=== PATIENT | male | born 1950 | race Caucasian/White ===

== ENCOUNTER → 2019-04-20 13:45 | Outpatient (CLI) | payer OTHER, SELFPAY ==
--- NOTE | 2019-04-20 | DI.US.S_ITS ---
PROCEDURE: US SOFT TISSUE HEAD AND NECK INDICATIONS: LOCALIZED SWELLING, MASS AND LUMP, LT NECK TECHNIQUE: Real-time scanning was performed of the neck region of interest, with image documentation. COMPARISON: [facility], CT, C-SPINE WITHOUT CONTRAST, 05/24/2015, 13:42. FINDINGS: Palpable left neck mass corresponds to a calcified mass measuring roughly 0.9 x 1.0 cm. Doppler assessment demonstrates no internal flow; however assessment is severely limited secondary to the acoustic attenuation. IMPRESSION: Calcified mass or spine to the palpable abnormality measuring up to 1.0 cm. If indicated, contrast-enhanced soft tissue neck CT could be performed with marker over the palpable abnormality for further assessment. Dictated by: Luis HAWK Interpreted: Darvin Jacobs MD on 04/20/2019 at 15:53 Approved by: Darvin Jacobs M.D. on 04/20/2019 at 18:34
== END ==
PROVIDERS: PCP Physician Assistant Medical; Visit Provider Physician Assistant
DX: R22.1 Localized swelling, mass and lump, neck (principal)
CPT/HCPCS: 76536

== ENCOUNTER → 2020-11-21 13:05 | Outpatient (CLI) | payer OTHER, SELFPAY ==
--- NOTE | 2020-11-21 | DI.US.S_ITS ---
PROCEDURE: US ABDOMEN LIMITED INDICATIONS: RIGHT LOWER QUADRANT PAIN TECHNIQUE: Real-time focused scanning was performed of the abdomen, with image documentation. COMPARISON: None. FINDINGS: Within the right groin, there is an apparent direct inguinal hernia which contains fat. This is partially compressible. The neck size measures 1.2 x 1.2 cm. On the left, there is also a fat containing hernia which is believed to be a direct inguinal hernia with the hernia neck measuring 1.4 x 0.9 cm. IMPRESSION: Bilateral fat containing groin hernias. Dictated by: Cesar Oliver M.D. on 11/21/2020 at 14:08 Approved by: Cesar Oliver M.D. on 11/21/2020 at 14:09
== END ==
PROVIDERS: PCP Physician Assistant Medical; Referring Provider Physician Assistant Medical; Visit Provider Physician Assistant Medical
DX: R19.03 Right lower quadrant abdominal swelling, mass and lump (principal); R10.31 Right lower quadrant pain; K40.20 Bilateral inguinal hernia, without obstruction or gangrene, not specified as recurrent
CPT/HCPCS: 76705

== ENCOUNTER 2021-12-11 14:21 | Observation (INO) | payer OTHER, SELFPAY ==
[2021-12-11] VITALS (19 sets, daily range): BP systolic 106–174; BP diastolic 60–90; PULSE 72–145; RESP 18–34; TEMP 36.9–37; O2SAT 87–100; BMI 22.4
--- NOTE | 2021-12-11 14:33 | DI.RAD.S_ITS ---
PROCEDURE: XR CHEST 1V INDICATIONS: chest pain TECHNIQUE: One view of the chest was acquired. COMPARISON: None. FINDINGS: Surgical changes and devices: None. Lungs and pleura: There is hyperinflation and chronic interstitial changes without focal infiltrate, pleural effusion or pneumothorax. Mediastinum: Mediastinal contours appear normal. Heart size is normal. Bones and chest wall: No suspicious bony lesions. Overlying soft tissues appear unremarkable. Generalized decrease in osseous mineralization noted. IMPRESSION: Hyperinflation and chronic interstitial changes Approved by: Rodrigue Wong M.D. on 12/11/2021 at 15:19
--- NOTE | 2021-12-11 14:49 | ED_ITS ---
HPI - Arrhythmia/Palpitations General Chief Complaint: Arrhythmia/Palpitations Stated Complaint: sob/tachycardia Time Seen by Provider: 12/11/21 14:44 Source: patient Mode of arrival: Ambulatory History of Present Illness HPI narrative: Patient is a 70-year-old male who presents from the walk-in clinic with atrial flutter. Patient overall very poor historian. He thinks that it has been going on for least 1 year. He had an urgent/emergent hernia surgery in December of 2020 he was monitoring his heart rate at that time he said it sometimes it was up to 150. He sometimes has shortness of breath he always feels like he has fluttering in his chest. No actual pain no significant shortness of breath. No fevers or chills. He said last night he was lying in bed and felt like he was hyperventilating. Which prompted his visit to the walk-in clinic. Related Data Allergies Allergy/AdvReac Type Severity Reaction Status Date / Time Sulfa (Sulfonamide Allergy Verified 12/11/21 14:30 Antibiotics) Review of Systems Review of Systems Narrative: GENERAL: Denies chills, fatigue, malaise, fever, sweats, travel HEENT: Denies sinus pain, ear pain, sore throat, difficulty swallowing, neck pain RESPIRATORY: Denies dyspnea, cough, wheezing, hemoptysis, sputum. CARDIOVASCULAR: See HPI GASTROINTESTINAL: Denies nausea, vomiting, abdominal pain, diarrhea, constipation, melena. : Denies dysuria, frequency, incontinence, hematuria, urinary retention, flank pain. MUSCULOSKELETAL: Denies weakness, joint pain, or bony pain SKIN: No rash, no erythema, no pruritus NEUROLOGIC: Denies weakness, dizziness, headache, numbness, change in speech, confusion PSYCHIATRIC: No concerning psychosocial issues. 12 point review of systems is negative except for those stated above and HPI Exam Initial Vital Signs Initial Vital Signs: Vital Signs Temperature 98.5 F 12/11/21 14:27 Pulse Rate 145 H 12/11/21 14:27 Respiratory Rate 24 12/11/21 14:27 Blood Pressure 174/84 H 12/11/21 14:27 Pulse Oximetry 95 12/11/21 14:27 GENERAL: Alert 70-year-old male in no acute distress. HEENT: Head atraumatic,EOMI, pupils reactive, face symmetric, moist] mucous membranes CARDIOVASCULAR: Tachycardia regular no murmur RESPIRATORY: Breath sounds equal bilaterally, no wheezes rales or rhonchi. ABDOMEN: Soft, nontender. Normoactive bowel sounds all 4 quadrants. No guarding or rebound. EXTREMITIES: Normal range of motion, no clubbing or edema. Neurovascularly intact NEUROLOGICAL: Alert and oriented x4.Normal gait and speech. SKIN: Warm, dry, no laceration, no petechiae, no rashes or lesions. Course Orders Ordered: ED Orders 12/11/21 14:33 XR chest 1V Stat EKG-12 Lead Stat 12/11/21 14:36 COVID19 -Nasal swab/Pre-Proc Stat 12/11/21 14:40 Complete Blood Count AUTO DIFF Stat Comprehensive Metabolic Panel Stat D Dimer Stat Lipase Stat Magnesium Stat NT-proBNP (BNP-Adult 18+) Stat TSH w/ Reflex to FT4 Stat Troponin & CK Cardiac Panel Stat Diltiazem HCl 125 mg/ Dextrose 125 mls @ 5 mls/hr IV TITRATE EFREN; Protocol Last Titration: 12/11/21 18:26 Dose: 7.5 mg/hr, 7.5 mls/hr Documented by: Titration: 12/11/21 17:33 Dose: 7.5 mg/hr, 7.5 mls/hr Documented by: Admin: 12/11/21 15:37 Dose: 5 mg/hr, 5 mls/hr Documented by: MARCUS Discontinued Medications Diltiazem HCl (Diltiazem 5 Mg/Ml Sdv) 10 mg IV NOW ONE Stop: 12/11/21 14:43 Last Admin: 12/11/21 15:00 Dose: 10 mg Documented by: MARCUS Diltiazem HCl (Diltiazem 5 Mg/Ml Sdv) 10 mg IV NOW ONE Stop: 12/11/21 14:45 Last Admin: 12/11/21 15:04 Dose: 10 mg Documented by: MARCUS Metoprolol Tartrate (Metoprolol Tartrate 5 Mg/5 Ml Inj) 5 mg IV NOW ONE Stop: 12/11/21 15:03 Last Admin: 12/11/21 15:33 Dose: Not Given Documented by: MARCUS Vital Signs Vital signs: Vital Signs - 8 hr 12/11/21 14:27 12/11/21 14:35 12/11/21 14:36 Temperature 98.5 F Pulse Rate 145 H 143 H 144 H Respiratory Rate 24 28 H 27 H Blood Pressure 174/84 H 161/90 H Pulse Oximetry 95 98 99 12/11/21 15:00 12/11/21 15:04 12/11/21 15:17 Temperature Pulse Rate 143 H 144 H 143 H Respiratory Rate 18 31 H Blood Pressure 126/78 126/64 Pulse Oximetry 100 99 12/11/21 15:30 12/11/21 15:35 12/11/21 15:37 Temperature Pulse Rate 76 106 H Respiratory Rate 30 H 34 H Blood Pressure 123/64 118/78 Pulse Oximetry 95 12/11/21 16:00 12/11/21 16:30 12/11/21 17:00 Temperature Pulse Rate 143 H 111 H 143 H Respiratory Rate 19 23 26 H Blood Pressure 138/75 130/65 127/80 Pulse Oximetry 97 99 87 L 12/11/21 17:30 Temperature Pulse Rate 141 H Respiratory Rate 29 H Blood Pressure 137/84 Pulse Oximetry 99 MDM - Arrhythmia/Palpitations Lab Data Result diagrams: 12/11/21 14:40 12/11/21 14:40 Labs: Lab Results 12/11/21 12/11/21 12/11/21 Range/Units 14:36 14:40 14:40 WBC 7.0 (4.5-11.0) X10^3/uL RBC 4.07 L (4.5-5.9) X10^6/uL Hgb 9.9 L (13.5-17.5) g/dL Hct 34.0 L (41-53) % MCV 83.4 (80-100) fL MCH 24.2 L (26-34) PG MCHC 29.1 L (30-36) % RDW 18.9 H (11.6-14.8) % Plt Count 176 (150-400) X10^3/uL Neut % (Auto) Not Reportable Lymph % (Auto) Not Reportable [place] % (Auto) Not Reportable Eos % (Auto) Not Reportable Baso % (Auto) Not Reportable Lymph # (Auto) Not Reportable [place] # (Auto) Not Reportable Baso # (Auto) Not Reportable Total Counted 100 Seg Neutrophils % 48.0 (38-70) % Band Neutrophils % 2.0 L (3-7) % Lymphocytes % (Manual) 50.0 H (25-45) % Neutrophils # (Manual) 3500 (1393-1610) /uL RBC Morphology Not Reportable Hypochromasia 3+ H Target Cells 1+ H D-Dimer (<230) ng/mL Sodium 136 L (137-145) mmol/L Potassium 5.1 (3.4-5.1) mmol/L Chloride 103 (98-107) mmol/L Carbon Dioxide 24 (22-32) mmol/L BUN 11 (9-20) mg/dL Creatinine 0.65 L (0.66-1.25) mg/dL Estimated GFR > 60.0 (>60) mL/min BUN/Creatinine Ratio 16.9 (6-22) Glucose 98 (80-110) mg/dL Calcium 9.0 (8.4-10.2) mg/dL Magnesium 1.8 (1.6-2.3) mg/dL Total Bilirubin 1.1 (0.2-1.3) mg/dL AST 106 H (17-59) IU/L ALT 18 (<50) IU/L Alkaline Phosphatase 76 (38-126) U/L Total Creatine Kinase 81 (55-170) U/L CK-MB (CK-2) TNP CK-MB (CK-2) Rel Index TNP Troponin I 0.021 (0.01-0.034) ng/mL NT-Pro-B Natriuret Pep (<125) pg/mL Total Protein 7.8 (6.3-8.2) g/dL Albumin 4.6 (3.5-5.0) g/dL Globulin 3.2 (1.7-4.1) g/dL Albumin/Globulin Ratio 1.4 (1.0-2.8) Lipase 39 (23-300) U/L TSH (0.47-4.68) uIU/mL SARS-CoV-2 (PCR) Negative (Negative) 12/11/21 12/11/21 12/11/21 Range/Units 14:40 14:40 14:40 WBC (4.5-11.0) X10^3/uL RBC (4.5-5.9) X10^6/uL Hgb (13.5-17.5) g/dL Hct (41-53) % MCV (80-100) fL MCH (26-34) PG MCHC (30-36) % RDW (11.6-14.8) % Plt Count (150-400) X10^3/uL Neut % (Auto) Lymph % (Auto) [place] % (Auto) Eos % (Auto) Baso % (Auto) Lymph # (Auto) [place] # (Auto) Baso # (Auto) Total Counted Seg Neutrophils % (38-70) % Band Neutrophils % (3-7) % Lymphocytes % (Manual) (25-45) % Neutrophils # (Manual) (5830-9880) /uL RBC Morphology Hypochromasia Target Cells D-Dimer 535 H (<230) ng/mL Sodium (137-145) mmol/L Potassium (3.4-5.1) mmol/L Chloride (98-107) mmol/L Carbon Dioxide (22-32) mmol/L BUN (9-20) mg/dL Creatinine (0.66-1.25) mg/dL Estimated GFR (>60) mL/min BUN/Creatinine Ratio (6-22) Glucose (80-110) mg/dL Calcium (8.4-10.2) mg/dL Magnesium (1.6-2.3) mg/dL Total Bilirubin (0.2-1.3) mg/dL AST (17-59) IU/L ALT (<50) IU/L Alkaline Phosphatase (38-126) U/L Total Creatine Kinase (55-170) U/L CK-MB (CK-2) CK-MB (CK-2) Rel Index Troponin I (0.01-0.034) ng/mL NT-Pro-B Natriuret Pep 2780 H (<125) pg/mL Total Protein (6.3-8.2) g/dL Albumin (3.5-5.0) g/dL Globulin (1.7-4.1) g/dL Albumin/Globulin Ratio (1.0-2.8) Lipase (23-300) U/L TSH 2.01 (0.47-4.68) uIU/mL SARS-CoV-2 (PCR) (Negative) Imaging Data Chest x-ray: Radiologist's Impresson: PROCEDURE:? XR CHEST 1V ? INDICATIONS:? chest pain ? TECHNIQUE:? One view of the chest was acquired.? ? COMPARISON:? None. ? FINDINGS:? ? Surgical changes and devices:? None.? ? Lungs and pleura:? There is hyperinflation and chronic interstitial changes without focal infiltrate, pleural effusion or pneumothorax. ? Mediastinum:? Mediastinal contours appear normal.? Heart size is normal.? ? Bones and chest wall:? No suspicious bony lesions.? Overlying soft tissues appear unremarkable.? Generalized decrease in osseous mineralization noted. ? IMPRESSION:? Hyperinflation and chronic interstitial changes ? ? ? Approved by: Rodrigue Wong M.D. on 12/11/2021 at 15:19? ECG Data Interpretation: EKG 1. Patient will flutter heart rate 144 similar to EKG in clinic MDM Narrative Medical decision making narrative: Patient has atrial flutter with one-to-one block. Diltiazem initially given 10 mg minimal change she is given a 2nd dose and then heart rate did slow. He has placement diltiazem drip which slows his heart rate. He is certainly not a candidate for cardioversion it is unclear however he has been in atrial flutter. Troponin is negative he has mild elevation of BNP of 2000 no signs of shortness of breath. Discussion with Dr. Knapp who agrees with admission agrees with checking D-dimer. Discharge Plan Departure Patient Disposition: Admitted As Inpatient Clinical Impression: Atrial flutter with rapid ventricular response Admit Date/Time: 12/11/21 17:40 Admit Provider: Dede Knapp
[2021-12-11] MEDS: dilTIAZem 5 MG/ML SDV 10 MG IV ×2 (15:00→15:04)
[2021-12-11 15:04] LABS: Hemoglobin 9.9 g/dL (13.5-17.5); Mean Corpuscular HGB Conc 29.1 % (30-36); Mean Corpuscular Hemoglobin 24.2 PG (26-34); Mean Corpuscular Volume 83.4 fL (80-100); Platelet Count 176 X10^3/uL (150-400); Red Blood Cell Count 4.07 X10^6/uL (4.5-5.9); Red Cell Distribution Width 18.9 % (11.6-14.8)
[2021-12-11 15:05] LABS: Add Manual Diff / Slide Review YES
[2021-12-11 15:10] LABS: COVID19 -Nasal RAPID Negative (Negative)
[2021-12-11 15:21] LABS: NT-proBNP (BNP-Adult 18+) 2780 pg/mL (<125); Neutrophils Absolute Manual 3500 /uL (3000-5900); Total Cells Counted 100
[2021-12-11 15:22] LABS: Hypochromasia 3+; Target Cells 1+
[2021-12-11] MEDS: dilTIAZem 125 MG in DEXTROSE 5 % IN WATER 100 ML IV (15:37)
[2021-12-11 15:42] LABS: TSH w/ Reflex to FT4 2.01 uIU/mL (0.47-4.68)
[2021-12-11 16:43] LABS: Alanine Aminotransferase 18 IU/L (<50); Albumin 4.6 g/dL (3.5-5.0); Albumin Globulin Ratio 1.4 (1.0-2.8); Alkaline Phosphatase 76 U/L (38-126); Aspartate Aminotransferase 106 IU/L (17-59); BUN Creatinine Ratio 16.9 (6-22); Bilirubin Total 1.1 mg/dL (0.2-1.3); Blood Urea Nitrogen 11 mg/dL (9-20); Carbon Dioxide 24 mmol/L (22-32); Chloride 103 mmol/L (98-107); Creatine Kinase 81 U/L (55-170); Estimated Glomerular Filt Rate > 60.0 mL/min (>60); Globulin 3.2 g/dL (1.7-4.1); Glucose 98 mg/dL (80-110); Lipase 39 U/L (23-300); Magnesium 1.8 mg/dL (1.6-2.3); Potassium 5.1 mmol/L (3.4-5.1); Sodium 136 mmol/L (137-145); Total Protein 7.8 g/dL (6.3-8.2)
[2021-12-11 16:44] LABS: HEMOLYSIS 162 (0-50)
[2021-12-11 16:54] LABS: Troponin I 0.021 ng/mL (0.01-0.034)
[2021-12-11 18:10] LABS: D Dimer 535 ng/mL (<230)
--- NOTE | 2021-12-11 19:09 | P.TELICUCN_ITS ---
History of Present Illness Consult details Chief complaint: sob/tachycardia :: This patient was seen in the Intensive Care Unit via real time interactive two- way audiovisual telecommunication. Narrative: Mr. Quinteros is a 70 year old male with history of COPD and hypertension presenting who was referred to ER for atrial flutter evaluation. Patient reports having ch ronic shortness of breath and palpitations for the past year. Able to walk about 100 feet before he has to stop and rest. Associated with anxiety. Denies cough, fever/chills, PND, orthopnea, or abdominal pain. No reported hx of GI bleed. He is a current smoker (1/2 PPD). In ER, he was found to be in A flutter rate ~150s and started on cardiazem 15 mg/hr. At the time of my assessment his HR came down to the 70s. He is awake and nontoxic appearing. Discussed about risks/benefits/alternatives of systemic anticoagulation for stroke prevention which he verbalized understanding and agree with it. [facility] Social History Smoking Status: Current every day smoker alcohol intake: current Current Medications Current Medications Medications: Home Medications acetaminophen 500 mg capsule 1,000 mg PO PRN PRN 12/11/21 [History Confirmed 12/11/21] Visit Medications (administered) Generic Name Dose Route Start Last Admin Trade Name Freq PRN Reason Stop Dose Admin Diltiazem HCl 125 mg/ Dextrose 125 mls @ 5 mls/hr 12/11/21 15:11 12/11/21 18:53 IV 15 mg/hr TITRATE EFREN 15 mls/hr Titration Protocol 5 MG/HR Exam Vital Signs (past 8 hours): - 12/11/21 14:27 12/11/21 14:35 12/11/21 14:36 Temperature 98.5 F Pulse Rate 145 H 143 H 144 H Respiratory Rate 24 28 H 27 H Blood Pressure 174/84 H 161/90 H Pulse Oximetry 95 98 99 12/11/21 15:00 12/11/21 15:04 12/11/21 15:17 Temperature Pulse Rate 143 H 144 H 143 H Respiratory Rate 18 31 H Blood Pressure 126/78 126/64 Pulse Oximetry 100 99 12/11/21 15:30 12/11/21 15:35 12/11/21 15:37 Temperature Pulse Rate 76 106 H Respiratory Rate 30 H 34 H Blood Pressure 123/64 118/78 Pulse Oximetry 95 12/11/21 16:00 12/11/21 16:30 12/11/21 17:00 Temperature Pulse Rate 143 H 111 H 143 H Respiratory Rate 19 23 26 H Blood Pressure 138/75 130/65 127/80 Pulse Oximetry 97 99 87 L 12/11/21 17:30 12/11/21 17:45 12/11/21 18:00 Temperature 98.6 F Pulse Rate 141 H 88 82 Respiratory Rate 29 H 18 19 Blood Pressure 137/84 129/89 124/64 Pulse Oximetry 99 99 99 Oxygen Delivery Method Room Air Narrative Exam Narrative: NAD. Speaking in full sentence. Objective Labs Result Diagrams: 12/11/21 14:40 12/11/21 14:40 Labs: Laboratory Results - last 24 hr 12/11/21 12/11/21 12/11/21 14:36 14:40 14:40 WBC 7.0 RBC 4.07 L Hgb 9.9 L Hct 34.0 L MCV 83.4 MCH 24.2 L MCHC 29.1 L RDW 18.9 H Plt Count 176 Neut % (Auto) Not Reportable Lymph % (Auto) Not Reportable [place] % (Auto) Not Reportable Eos % (Auto) Not Reportable Baso % (Auto) Not Reportable Lymph # (Auto) Not Reportable [place] # (Auto) Not Reportable Baso # (Auto) Not Reportable Total Counted 100 Seg Neutrophils % 48.0 Band Neutrophils % 2.0 L Lymphocytes % (Manual) 50.0 H Neutrophils # (Manual) 3500 RBC Morphology Not Reportable Hypochromasia 3+ H Target Cells 1+ H D-Dimer Sodium 136 L Potassium 5.1 Chloride 103 Carbon Dioxide 24 BUN 11 Creatinine 0.65 L Estimated GFR > 60.0 BUN/Creatinine Ratio 16.9 Glucose 98 Calcium 9.0 Magnesium 1.8 Total Bilirubin 1.1 AST 106 H ALT 18 Alkaline Phosphatase 76 Total Creatine Kinase 81 CK-MB (CK-2) TNP CK-MB (CK-2) Rel Index TNP Troponin I 0.021 NT-Pro-B Natriuret Pep Total Protein 7.8 Albumin 4.6 Globulin 3.2 Albumin/Globulin Ratio 1.4 Lipase 39 TSH SARS-CoV-2 (PCR) Negative 12/11/21 12/11/21 12/11/21 14:40 14:40 14:40 WBC RBC Hgb Hct MCV MCH MCHC RDW Plt Count Neut % (Auto) Lymph % (Auto) [place] % (Auto) Eos % (Auto) Baso % (Auto) Lymph # (Auto) [place] # (Auto) Baso # (Auto) Total Counted Seg Neutrophils % Band Neutrophils % Lymphocytes % (Manual) Neutrophils # (Manual) RBC Morphology Hypochromasia Target Cells D-Dimer 535 H Sodium Potassium Chloride Carbon Dioxide BUN Creatinine Estimated GFR BUN/Creatinine Ratio Glucose Calcium Magnesium Total Bilirubin AST ALT Alkaline Phosphatase Total Creatine Kinase CK-MB (CK-2) CK-MB (CK-2) Rel Index Troponin I NT-Pro-B Natriuret Pep 2780 H Total Protein Albumin Globulin Albumin/Globulin Ratio Lipase TSH 2.01 SARS-CoV-2 (PCR) Assessment & Plan Assessment and plan (1) Atrial fibrillation/flutter: Status: Acute Assessment & Plan narrative: NEURO: # Anxiety -- Start xanax 0.25 mg q6hr prn anxiety RESP: # Shortness of breath -- Ddx includes panic attack vs A flutter vs untreated COPD vs CHF -- Check TTE -- Will need formal PFTs as outpatient to confirm airflow obstruction -- Start duoneb as needed for shortness of breath -- A flutter rx as below -- Needs PT/OT consultation -- Complete smoking cessation advised # Tobacco abuse -- Ordered nitcoine patch -- Complete smoking cessation advised -- Outpatient PFTs CVS: # A flutter w/ RVR -- Negative troponin -- Check formal EKG -- Check TTE -- Normal TSH -- Calculated CHADVASC score 2 -> start lovenox 1mg/kg BID -- On diltiazem infusion -- Start diltiazem 60 mg q6hr -- Goal HR < 110 # HTN -- On cardiazem -- Goal SBP < 140 HEME: # Anemia -- No reported hx of bleed -- Check iron, ferritin, TIBC -- Check PT/INR -- Daily CBC -- Goal Hb > 7 ENDO: -- Goal BS < 180 D/w treatment plan w/ pateint and RN at bedside. Had an extensive discussion about the pathophysiology and complication of A flutter and the benefits of being on systemic AC. Patient verbalized understanding and agree with treatment plan. Time Spent With Patient Critical Care time: I spent a total of [] minutes of critical care time on this patient's care today; this time is exclusive of procedural time.
--- NOTE | 2021-12-11 19:19 | PC.NURSE ---
pt fully admitted and c/o anxiety, shortness of breath and fluttering in chest atrial flutter noted rate 78-145 - denies pain , no pain- no home rx
--- NOTE | 2021-12-11 19:33 | DI.ECHO.S_ITS ---
[place] [facility]---------+ [facility] +---------+ : : [address] : : : : [id number] : : : : Phone: [phone]+ Echocardiogram Report + + :Name: GIOVANNY CARREON Study Date: 12/12/2021 Height: 73 in : :[facility] ReadingLocation: Weight: 170 lb: : Gender: Male BSA: 2.0 m2 : :: 1950 Age: 70 yrs BP: 95/58 mmHg: :Reason For Study: ATRIAL FLUTTER : :Ordering Physician: CHRISTINE ALMAGUER : : Performed By: Roxana Kunz : :Referring: CHRISTINE ALMAGUER MD : + + Interpretation Summary Technically difficult study due to pectus excavatum, no apical window available. The ejection fraction is estimated to be 55-60%. Unable to grade diastolic function due to atrial flutter. The right ventricle grossly appears normal in size with probable normal systolic function. No obvious valvular abnormalities. Unable to estimate PASP. Procedure: A two-dimensional transthoracic echocardiogram with color flow and Doppler was performed. The study quality was technically difficult. The apical views were not obtained due to pectus excavatum.. The patient was in atrial flutter with heart rates between 70-81 bpm during the exam. Left Ventricle: The left ventricle is normal in size and wall thickness. The ejection fraction is estimated to be 55-60%. Unable to grade diastolic function due to atrial flutter. Right Ventricle: The right ventricle grossly appears normal in size with probable normal systolic function. Atria: The left atrium grossly appears normal in size. The right atrium grossly appears normal in size. There is no Doppler evidence for an interatrial shunt. Mitral Valve: The mitral valve is normal in structure and function. There is trace mitral regurgitation. Aortic Valve: The aortic valve is trileaflet. The aortic valve opens well. Aortic valve area by planimetry is 3.0cm2. There is no hemodynamically significant valvular aortic stenosis. No aortic regurgitation is present. Tricuspid Valve: The tricuspid valve is normal in structure and function. There is mild tricuspid regurgitation. Pulmonary artery pressures cannot be estimated because of the lack of a measurable TR jet velocity but the IVC suggests a CVP of around 8 mmHg. Pulmonic Valve: The pulmonic valve is not well visualized. There is no pulmonic valvular regurgitation. Great Vessels: The aortic root is normal size. The dimensions of the ascending aorta are normal. The IVC is dilated (diameter is greater than 2.1 cm) yet it collapses greater than 50% with a sniff. This suggests a right atrial pressure of 8 mm Hg. Pericardium/ Pleura There is no pericardial effusion. There is no pleural effusion. MMode/2D Measurements & Calculations LVIDd: 4.6 cm LVOT diam: 2.1 cm LVIDs: 3.1 cm Ao root diam: 3.6 cm FS: 31.7 % asc Aorta Diam: 3.6 cm IVSd: 0.91 cm LVPWd: 0.83 cm LV hector. diameter/BSA (cm/m^2): 2.3 LV sys. diameter/BSA (cm/m^2): 1.6 LA dimension: 3.6 cm RA long axis: 6.6 cm LA A4 area: 21.0 cm2 RA area: 30.2 cm2 LA length (vol): 5.4 cm RA vol: 117.5 ml RA : 58.5 ml/m2 IVC diam: 3.1 cm RVD1 (basal): 3.6 cm RVD2 (mid): 3.0 cm Doppler Measurements & Calculations LVOT Max [place]: 54.7 cm/sec MV E max garland: 52.3 cm/sec LV V1 max P.2 mmHg Med Peak E' [place]: 9.2 cm/sec LV V1 VTI: 9.7 cm E/E' med: 5.7 Lat Peak E' [place]: 7.7 cm/sec E/E' lat: 6.8 E/e' average: 6.3 MV dec time: 0.12 sec PA pr(Accel): 36.2 mmHg SV(LVOT): 32.1 ml Reading Physician:01:08 PM
[2021-12-11 20:03] LABS: Iron 142 ug/dL (49-181)
[2021-12-11 20:04] LABS: HEMOLYSIS 165 (0-50)
[2021-12-11 20:05] LABS: INR 1.3 (0.9-1.3); Prothrombin Time 14.6 SECONDS (10.1-12.7)
[2021-12-11 20:09] LABS: Magnesium 1.8 mg/dL (1.6-2.3)
[2021-12-11 20:12] LABS: Transferrin 205 mg/dL (206-381)
[2021-12-11 20:13] LABS: Percent Iron Saturation 61 % (20-50); Total Iron Binding Capacity 233 ug/dL (261-462)
[2021-12-11] MEDS: ENOXAPARIN 100 MG/ML SYRINGE 75 MG SUBCUT (20:24)
[2021-12-11] MEDS: ALPRAZolam 0.25 MG TABLET PO (20:25)
[2021-12-11] MEDS: dilTIAZem 30 MG TABLET 60 MG PO (20:25)
[2021-12-11 20:39] LABS: Ferritin 159 ng/mL (18-464)
[2021-12-12] VITALS (25 sets, daily range): BP systolic 95–118; BP diastolic 58–66; PULSE 69–144; RESP 15–38; TEMP 36.6–36.7; O2SAT 93–98
--- NOTE | 2021-12-12 00:09 | PM.HP.1 ---
History of Present Illness History of Present Illness Date Patient Seen: 12/11/21 Time Patient Seen: 22:00 Chief complaint: sob/tachycardia Narrative: Presented from urgent care with high HR in the 150s found to be in atrial flutter controlled with diltiazem drip now with reasonable rate in 70s and feeling back to regular. Thinks he has been feeling palpitations like this off and on for the last year but not this bad. Smokes 1/2 ppd has been told he had high blood pressure in the past, allergic to sulfa. 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 Patient History Family & Social History Social History: Prior Living Arrangements House Safety & Behavioral: Feels Safe in Current Yes Environment Been Physically Hurt or No Threatened By a Person Suicidal Ideation Description None Suicide Plan Description No Plan Tobacco & Substance use: Tobacco type cigarettes Smoking Status Current every day smoker Smoking packs per day 0.5 alcohol intake current alcohol intake frequency a few times a month Substance Use Type does not use Meds Home Medications and Allergies Home Medications Medication Instructions Recorded Confirmed Type acetaminophen 500 mg capsule 1,000 mg PO PRN PRN 12/11/21 12/11/21 History Allergies Allergy/AdvReac Type Severity Reaction Status Date / Time Sulfa (Sulfonamide Allergy Verified 12/11/21 14:30 Antibiotics) Review of Systems Review of Systems Narrative: all systems reviewed and negative except as otherwise documented in HPI Exam Vital Signs (past 8 hours): - 12/11/21 16:30 12/11/21 17:00 12/11/21 17:30 Temperature Pulse Rate 111 H 143 H 141 H Respiratory Rate 23 26 H 29 H Blood Pressure 130/65 127/80 137/84 Pulse Oximetry 99 87 L 99 12/11/21 17:45 12/11/21 18:00 12/11/21 20:25 Temperature 98.6 F Pulse Rate 88 82 73 Respiratory Rate 18 19 Blood Pressure 129/89 124/64 119/89 Pulse Oximetry 99 99 12/11/21 21:00 12/11/21 22:00 12/11/21 23:00 Temperature Pulse Rate 72 72 72 Respiratory Rate 21 20 Blood Pressure 113/66 106/60 109/64 Pulse Oximetry 98 97 12/12/21 00:00 Temperature Pulse Rate 72 Respiratory Rate 23 Blood Pressure 106/62 Pulse Oximetry Oxygen Delivery Method Room Air Narrative Exam Narrative: laying in hospital bed well nourished [facility] Head: normal to inspection, normocephalic and atraumatic Eyes General: appearance normal, both eyes and all related structures Neck Neck: normal visual inspection, full ROM, trachea midline and supple Resp Other: clear to auscultation bilaterally Cardio Other: irregular rhythm normal rate S1/S2 GI Other: soft nontender nondistended Skin General: no rashes or lesions noted Neuro General: patient alert, patient awake and patient oriented x3 Extrem General: normal to inspection and full ROM Psych Appearance: grossly normal Mental Status: mental status grossly normal Speech and Movement: speech and movement normal Mood: congruent mood Affect: normal affect Objective Labs Result Diagrams: 12/11/21 14:40 12/11/21 14:40 Labs: Laboratory Results - last 24 hr 12/11/21 12/11/21 12/11/21 14:36 14:40 14:40 WBC 7.0 RBC 4.07 L Hgb 9.9 L Hct 34.0 L MCV 83.4 MCH 24.2 L MCHC 29.1 L RDW 18.9 H Plt Count 176 Neut % (Auto) Not Reportable Lymph % (Auto) Not Reportable [place] % (Auto) Not Reportable Eos % (Auto) Not Reportable Baso % (Auto) Not Reportable Lymph # (Auto) Not Reportable [place] # (Auto) Not Reportable Baso # (Auto) Not Reportable Total Counted 100 Seg Neutrophils % 48.0 Band Neutrophils % 2.0 L Lymphocytes % (Manual) 50.0 H Neutrophils # (Manual) 3500 RBC Morphology Not Reportable Hypochromasia 3+ H Target Cells 1+ H PT INR D-Dimer Sodium 136 L Potassium 5.1 Chloride 103 Carbon Dioxide 24 BUN 11 Creatinine 0.65 L Estimated GFR > 60.0 BUN/Creatinine Ratio 16.9 Glucose 98 Calcium 9.0 Magnesium 1.8 Iron TIBC % Saturation Transferrin Ferritin Total Bilirubin 1.1 AST 106 H ALT 18 Alkaline Phosphatase 76 Total Creatine Kinase 81 CK-MB (CK-2) TNP CK-MB (CK-2) Rel Index TNP Troponin I 0.021 NT-Pro-B Natriuret Pep Total Protein 7.8 Albumin 4.6 Globulin 3.2 Albumin/Globulin Ratio 1.4 Lipase 39 TSH Nasal Screen MRSA (PCR) SARS-CoV-2 (PCR) Negative 12/11/21 12/11/21 12/11/21 14:40 14:40 14:40 WBC RBC Hgb Hct MCV MCH MCHC RDW Plt Count Neut % (Auto) Lymph % (Auto) [place] % (Auto) Eos % (Auto) Baso % (Auto) Lymph # (Auto) [place] # (Auto) Baso # (Auto) Total Counted Seg Neutrophils % Band Neutrophils % Lymphocytes % (Manual) Neutrophils # (Manual) RBC Morphology Hypochromasia Target Cells PT INR D-Dimer 535 H Sodium Potassium Chloride Carbon Dioxide BUN Creatinine Estimated GFR BUN/Creatinine Ratio Glucose Calcium Magnesium Iron TIBC % Saturation Transferrin Ferritin Total Bilirubin AST ALT Alkaline Phosphatase Total Creatine Kinase CK-MB (CK-2) CK-MB (CK-2) Rel Index Troponin I NT-Pro-B Natriuret Pep 2780 H Total Protein Albumin Globulin Albumin/Globulin Ratio Lipase TSH 2.01 Nasal Screen MRSA (PCR) SARS-CoV-2 (PCR) 12/11/21 12/11/21 12/11/21 14:40 14:40 14:40 WBC RBC Hgb Hct MCV MCH MCHC RDW Plt Count Neut % (Auto) Lymph % (Auto) [place] % (Auto) Eos % (Auto) Baso % (Auto) Lymph # (Auto) [place] # (Auto) Baso # (Auto) Total Counted Seg Neutrophils % Band Neutrophils % Lymphocytes % (Manual) Neutrophils # (Manual) RBC Morphology Hypochromasia Target Cells PT 14.6 H INR 1.3 D-Dimer Sodium Potassium Chloride Carbon Dioxide BUN Creatinine Estimated GFR BUN/Creatinine Ratio Glucose Calcium Magnesium 1.8 Iron 142 TIBC 233 L % Saturation 61 H Transferrin 205 L Ferritin Total Bilirubin AST ALT Alkaline Phosphatase Total Creatine Kinase CK-MB (CK-2) CK-MB (CK-2) Rel Index Troponin I NT-Pro-B Natriuret Pep Total Protein Albumin Globulin Albumin/Globulin Ratio Lipase TSH Nasal Screen MRSA (PCR) SARS-CoV-2 (PCR) 12/11/21 12/11/21 14:40 19:00 WBC RBC Hgb Hct MCV MCH MCHC RDW Plt Count Neut % (Auto) Lymph % (Auto) [place] % (Auto) Eos % (Auto) Baso % (Auto) Lymph # (Auto) [place] # (Auto) Baso # (Auto) Total Counted Seg Neutrophils % Band Neutrophils % Lymphocytes % (Manual) Neutrophils # (Manual) RBC Morphology Hypochromasia Target Cells PT INR D-Dimer Sodium Potassium Chloride Carbon Dioxide BUN Creatinine Estimated GFR BUN/Creatinine Ratio Glucose Calcium Magnesium Iron TIBC % Saturation Transferrin Ferritin 159 Total Bilirubin AST ALT Alkaline Phosphatase Total Creatine Kinase CK-MB (CK-2) CK-MB (CK-2) Rel Index Troponin I NT-Pro-B Natriuret Pep Total Protein Albumin Globulin Albumin/Globulin Ratio Lipase TSH Nasal Screen MRSA (PCR) Negative for mrsa SARS-CoV-2 (PCR) Assessment & Plan Assessment & Plan narrative: #atrial flutter with tachycardia, present on admission, new diagnosis responding well to diltiazem drip may be suitable for transition to PO tomorrow cardiac surgeon new diagnosis #acute anemia present on admission Hgb 9.9, source unclear monitor #tobacco abuse prn nicotine patch available #COPD prn duonebs #HTN not on any meds at home prn hydralazine for now dvt: lovenox diet: heart healthy Code: DNR MDM: Son Quincy [phone] Time Spent With Patient Critical Care time: I spent a total of [] minutes of critical care time on this patient's care today; this time is exclusive of procedural time.
[2021-12-12] MEDS: dilTIAZem 30 MG TABLET 60 MG PO ×2 (02:43→07:53)
--- NOTE | 2021-12-12 06:35 | PC.NURSE ---
Shift Note-Patient continues to be in A-flutter 2:1, rate 70s, BP stable, see vital trends, diltiazem gtt titrated to off by midnight after PO diltiazem started, Lovenox SQ started, denies pain or shortness of breath. Xanax ordered for anxiety.
--- NOTE | 2021-12-12 07:46 | P.TELICUPN_ITS ---
Subjective Subjective :: This patient was seen in the Intensive Care Unit via real time interactive two- way audiovisual telecommunication. Pt. Summary: 70 year old male with history of COPD and hypertension admitted 12/11/21 for SOB and palpitations and found to be in Aflutter with RVR (HR 150s). Pt. started on cardizem drip for HR control and it has been weaned off overnight after diltiazem 60 mg PO QID was started. HR overnight ranged 70-80s but this morning after he got up, his HR jumped to 130s. Pt. is getting his next dose of PO diltiazem right now. Current Medications Current Medications Medications: Home Medications acetaminophen 500 mg capsule 1,000 mg PO PRN PRN 12/11/21 [History Confirmed 12/11/21] Visit Medications (administered) Generic Name Dose Route Start Last Admin Trade Name Freq PRN Reason Stop Dose Admin Alprazolam 0.25 mg 12/11/21 19:35 12/11/21 20:25 Alprazolam 0.25 Mg Tablet PO 0.25 mg Q6H PRN Administration Anxiety Diltiazem HCl 60 mg 12/11/21 20:00 12/12/21 02:43 Diltiazem 30 Mg Tablet PO 60 mg Q6H EFREN Administration Enoxaparin Sodium 75 mg 12/11/21 21:00 12/11/21 20:24 Enoxaparin 100 Mg/Ml Syringe SUBCUT 75 mg BID EFREN Administration Diltiazem HCl 125 mg/ Dextrose 125 mls @ 5 mls/hr 12/11/21 15:11 12/11/21 23:39 IV 0 mg/hr TITRATE EFREN 0 mls/hr Titration Protocol 5 MG/HR Sodium Chloride 10 ml 12/11/21 21:00 12/11/21 23:39 Sodium Chloride 0.9% Flush IV Not Given BID EFREN Objective Labs Result Diagrams: 12/11/21 14:40 12/11/21 14:40 Labs: Laboratory Results - last 24 hr 12/11/21 12/11/21 12/11/21 14:36 14:40 14:40 WBC 7.0 RBC 4.07 L Hgb 9.9 L Hct 34.0 L MCV 83.4 MCH 24.2 L MCHC 29.1 L RDW 18.9 H Plt Count 176 Neut % (Auto) Not Reportable Lymph % (Auto) Not Reportable [place] % (Auto) Not Reportable Eos % (Auto) Not Reportable Baso % (Auto) Not Reportable Lymph # (Auto) Not Reportable [place] # (Auto) Not Reportable Baso # (Auto) Not Reportable Total Counted 100 Seg Neutrophils % 48.0 Band Neutrophils % 2.0 L Lymphocytes % (Manual) 50.0 H Neutrophils # (Manual) 3500 RBC Morphology Not Reportable Hypochromasia 3+ H Target Cells 1+ H PT INR D-Dimer Sodium 136 L Potassium 5.1 Chloride 103 Carbon Dioxide 24 BUN 11 Creatinine 0.65 L Estimated GFR > 60.0 BUN/Creatinine Ratio 16.9 Glucose 98 Calcium 9.0 Magnesium 1.8 Iron TIBC % Saturation Transferrin Ferritin Total Bilirubin 1.1 AST 106 H ALT 18 Alkaline Phosphatase 76 Total Creatine Kinase 81 CK-MB (CK-2) TNP CK-MB (CK-2) Rel Index TNP Troponin I 0.021 NT-Pro-B Natriuret Pep Total Protein 7.8 Albumin 4.6 Globulin 3.2 Albumin/Globulin Ratio 1.4 Lipase 39 TSH Nasal Screen MRSA (PCR) SARS-CoV-2 (PCR) Negative 12/11/21 12/11/21 12/11/21 14:40 14:40 14:40 WBC RBC Hgb Hct MCV MCH MCHC RDW Plt Count Neut % (Auto) Lymph % (Auto) [place] % (Auto) Eos % (Auto) Baso % (Auto) Lymph # (Auto) [place] # (Auto) Baso # (Auto) Total Counted Seg Neutrophils % Band Neutrophils % Lymphocytes % (Manual) Neutrophils # (Manual) RBC Morphology Hypochromasia Target Cells PT INR D-Dimer 535 H Sodium Potassium Chloride Carbon Dioxide BUN Creatinine Estimated GFR BUN/Creatinine Ratio Glucose Calcium Magnesium Iron TIBC % Saturation Transferrin Ferritin Total Bilirubin AST ALT Alkaline Phosphatase Total Creatine Kinase CK-MB (CK-2) CK-MB (CK-2) Rel Index Troponin I NT-Pro-B Natriuret Pep 2780 H Total Protein Albumin Globulin Albumin/Globulin Ratio Lipase TSH 2.01 Nasal Screen MRSA (PCR) SARS-CoV-2 (PCR) 12/11/21 12/11/21 12/11/21 14:40 14:40 14:40 WBC RBC Hgb Hct MCV MCH MCHC RDW Plt Count Neut % (Auto) Lymph % (Auto) [place] % (Auto) Eos % (Auto) Baso % (Auto) Lymph # (Auto) [place] # (Auto) Baso # (Auto) Total Counted Seg Neutrophils % Band Neutrophils % Lymphocytes % (Manual) Neutrophils # (Manual) RBC Morphology Hypochromasia Target Cells PT 14.6 H INR 1.3 D-Dimer Sodium Potassium Chloride Carbon Dioxide BUN Creatinine Estimated GFR BUN/Creatinine Ratio Glucose Calcium Magnesium 1.8 Iron 142 TIBC 233 L % Saturation 61 H Transferrin 205 L Ferritin Total Bilirubin AST ALT Alkaline Phosphatase Total Creatine Kinase CK-MB (CK-2) CK-MB (CK-2) Rel Index Troponin I NT-Pro-B Natriuret Pep Total Protein Albumin Globulin Albumin/Globulin Ratio Lipase TSH Nasal Screen MRSA (PCR) SARS-CoV-2 (PCR) 12/11/21 12/11/21 14:40 19:00 WBC RBC Hgb Hct MCV MCH MCHC RDW Plt Count Neut % (Auto) Lymph % (Auto) [place] % (Auto) Eos % (Auto) Baso % (Auto) Lymph # (Auto) [place] # (Auto) Baso # (Auto) Total Counted Seg Neutrophils % Band Neutrophils % Lymphocytes % (Manual) Neutrophils # (Manual) RBC Morphology Hypochromasia Target Cells PT INR D-Dimer Sodium Potassium Chloride Carbon Dioxide BUN Creatinine Estimated GFR BUN/Creatinine Ratio Glucose Calcium Magnesium Iron TIBC % Saturation Transferrin Ferritin 159 Total Bilirubin AST ALT Alkaline Phosphatase Total Creatine Kinase CK-MB (CK-2) CK-MB (CK-2) Rel Index Troponin I NT-Pro-B Natriuret Pep Total Protein Albumin Globulin Albumin/Globulin Ratio Lipase TSH Nasal Screen MRSA (PCR) Negative for mrsa SARS-CoV-2 (PCR) Exam Vital Signs (past 8 hours): - 12/12/21 00:00 12/12/21 01:00 12/12/21 02:00 Temperature Pulse Rate 72 71 71 Respiratory Rate 23 22 18 Blood Pressure 106/62 101/64 101/60 Pulse Oximetry 12/12/21 02:43 12/12/21 04:00 12/12/21 05:00 Temperature Pulse Rate 72 71 71 Respiratory Rate 22 19 Blood Pressure 111/60 112/61 114/64 Pulse Oximetry 12/12/21 06:00 12/12/21 07:26 12/12/21 07:30 Temperature 98.1 F Pulse Rate 72 132 H 136 H Respiratory Rate 17 30 H 29 H Blood Pressure 111/65 118/59 L Pulse Oximetry 97 97 Oxygen Delivery Method Room Air Assessment & Plan Assessment & Plan narrative: Assessment 70 yo Aflutter with RVR COPD HTN anxiety smoker Plan AFlutter with RVR -Diltiazem 60 mg QID -if HR still not controlled and BP tolerates, will start Metoprolol -if HR still not controlled and BP borderline low, can increase PO diltiazem further to max of 90 mg QID -check ECHO -lovenox 1 mg/kg BID was started -TSH within normal limits -trop was neg COPD -prn duoneb -smoking cessaction advised -outpatient PFTS Anxiety -continue xanax 0.25 mg q6hr prn anxiety CCT spent 45 min Time Spent With Patient Critical Care time: I spent a total of [] minutes of critical care time on this patient's care tod ay; this time is exclusive of procedural time.
[2021-12-12] MEDS: ENOXAPARIN 100 MG/ML SYRINGE 75 MG SUBCUT (07:58)
[2021-12-12] MEDS: SODIUM CHLORIDE 0.9% FLUSH 10 ML IV (07:59)
--- NOTE | 2021-12-12 08:05 | PC.NURSE ---
Addendum entered by Edith Goddard R.N. 12/12/21 14:49: Education provided RE:dc planning and follow up as well as medications. [employer] voucher sent with patient. Pt Reported eye glasses(readers) that he was not sure if he had at admit, searched room, and belongings. Not in room. will update patient if they are recovered. Pt refusing w/c to private vehicle. Reported some fluttering/palpitations at d/c after ambulating. I will still be going home, I am not staying longer Pt ambulated to vehicle with no further complaints. Addendum entered by Edith Goddard R.N. 12/12/21 12:11: Pt has tolerated PO Metoprolol, up ambulating in hallway with HR no higher than 108. Denies palpitations during ambulation, education provided for sitting up slowly at edge of bed, no s/sx hypotension. Voiding to urinal. Addendum entered by Edith Goddard R.N. 12/12/21 08:51: Add: Call Into Dr Morfin, orders rec'd for IV Metoprolol x1, Pt tolerated well HR remains afib, 75, BP 105/66. Education provided about rationale for use. Pt verbalizes understanding. Denies CP or SOB. Awaiting ECHO. Addendum entered by Edith Goddard R.N. 12/12/21 08:36: 0830-HR remains in 140's. Original Note: Am shift Pt HR sustained in 130's this am after getting up to void. Overnight, had been weaned off dilt gtt and PO started @ HS. Rate had been 70's until activity. PO meds given this AM, Pt has c/o increased anxiety after noting HR elevated. Requests PO Xanax. BP stable 110's/ 70's, denies CP
[2021-12-12] MEDS: ALPRAZolam 0.25 MG TABLET PO (08:20)
[2021-12-12] MEDS: METOPROLOL TARTRATE 5 MG/5 ML INJ IV (08:50)
--- NOTE | 2021-12-12 10:55 | CM.DANOTE ---
DCP: Case received, EMR reviewed and met with patient. Introduced self and role. Was able to obtain information regarding patient's baseline activity level as well as his current living situation. DCP assessment completed with information currently available. PCP: ANDRES Loya at [facility] in [place]. Payer: confirmed: [facility] [employer]. Patient came to the hospital via private vehicle secondary to having a heart rate in the 150s. He was sent over from [facility] in [place]. Patient had indicated, he had been feeling palpitations like this off and on, but not this bad. Patient was diagnosed with atrial flutter with tachycardia. He was put on diltiazem drip in the ICU. Met with patient in his room. Confirmed that he resides alone in [place]. He has a son named Quinton who resides in [place], who he keeps contact with, and knows he's here. At his baseline he is independent. 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 P: DCP to continue to follow. Patient should be able to go home when he is deemed medically stable. Alile De La Garza RN/Device Sales Consultant Discharge Planning/Care Management CM Discharge Assessment Start: 12/12/21 10:53 Freq: Status: Active Protocol: Document 12/12/21 10:53 (Rec: 12/12/21 10:55 [id number]) Discharge Planning Assessment Assigned Meat Team Lead Allie De La Garza RN/Device Sales Consultant Advance Directives? No History Provided By Patient,Medical Record Prior Living Arrangements House Household Members none Type of transporation used prior to Drives own vehicle admit Independent with ADL's Yes Is patient alert and oriented? Yes Caregiver for Another No Barriers to Discharge No Discharge Plan Home Transportation Arrangement Self or family member Referrals Initiated None needed Whiteboard Updated in Patient Room with Yes name and ext. # of Meat Team Lead Review Status In Process Next Review Type Continued Stay Review
[2021-12-12] MEDS: METOPROLOL IR 25 MG TABLET PO (11:51)
--- NOTE | 2021-12-12 12:16 | PM.DS.1 ---
History of Present Illness History of Present Illness Date Patient Seen: 12/12/21 Chief complaint: sob/tachycardia Narrative: Presented from urgent care with high HR in the 150s found to be in atrial flutter controlled with diltiazem drip now with reasonable rate in 70s and feeling back to regular. Thinks he has been feeling palpitations like this off and on for the last year but not this bad. Smokes 1/2 ppd has been told he had high blood pressure in the past, allergic to sulfa. 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 Discharge Providers Provider Date of admission: 12/11/21 17:40 Discharge Date: 12/12/21 Primary care physician: Vincenzo Khan PA-C Discharge provider: Dede Knapp MD Summary Hospital Course Discharge Diagnosis: 1. Atrial flutter with a rapid ventricular response rate 2. COPD 3. Nicotine dependence 4. Anemia 5. Hypertension Hospital Course: Patient was admitted to the hospital with rapid atrial flutter, was placed on a diltiazem drip, he was ultimately able to be tapered off the drip and then placed on metoprolol 25 b.i.d.. Since that time his heart rate has been well controlled. Blood pressures been on the low normal side around 96 systolic. Patient has no specific complaints. He will be anticoagulated given his new a flutter, he will follow-up with his PCP as an outpatient, and will need a referral to Cardiology for possible DC cardioversion as well. At this time he has no acute symptoms. He is in no acute distress. He is deemed appropriate for discharge and plans are weight made for him to discharge home. Patient did have a cardiac echo on the day of discharge. The results are still pending. Will follow up and get results to his PCP. Status at Discharge Cognitive/behavioral status at discharge: oriented Functional status at discharge: independent ambulation Overall status at discharge: patient is progressing back to baseline Exam Vital Signs (past 8 hours): - 12/12/21 05:00 12/12/21 06:00 12/12/21 07:26 Temperature 98.1 F Pulse Rate 71 72 132 H Respiratory Rate 19 17 30 H Blood Pressure 114/64 111/65 118/59 L Pulse Oximetry 97 12/12/21 07:30 12/12/21 07:45 12/12/21 08:00 Temperature 97.8 F Pulse Rate 136 H 79 142 H Respiratory Rate 29 H 24 15 Blood Pressure 99/59 L 111/60 Pulse Oximetry 97 97 97 12/12/21 08:15 12/12/21 08:30 12/12/21 08:45 Temperature Pulse Rate 142 H 144 H 144 H Respiratory Rate 22 35 H 33 H Blood Pressure Pulse Oximetry 97 93 97 12/12/21 08:49 12/12/21 09:00 12/12/21 09:15 Temperature Pulse Rate 72 72 71 Respiratory Rate 29 H 30 H 38 H Blood Pressure 105/66 101/64 Pulse Oximetry 97 96 95 12/12/21 09:30 12/12/21 09:45 12/12/21 10:00 Temperature Pulse Rate 71 71 71 Respiratory Rate 35 H 30 H 34 H Blood Pressure 95/58 L Pulse Oximetry 96 97 97 12/12/21 10:15 12/12/21 10:30 12/12/21 10:45 Temperature Pulse Rate 69 69 71 Respiratory Rate 27 H 25 H 38 H Blood Pressure Pulse Oximetry 96 96 98 12/12/21 11:00 Temperature Pulse Rate 71 Respiratory Rate 30 H Blood Pressure 99/59 L Pulse Oximetry 98 Oxygen Delivery Method Room Air Narrative Exam Narrative: Pleasant male lying in bed in no obvious distress Resp Other: Lungs decreased breath sounds but clear Cardio Other: Regularly irregular, normal S1-S2 GI Other: Abdomen: Soft nontender nondistended Extrem Other: Extremities: No edema Objective Labs Result Diagrams: 12/11/21 14:40 12/11/21 14:40 Labs: Laboratory Results - last 24 hr 12/11/21 12/11/21 12/11/21 14:36 14:40 14:40 WBC 7.0 RBC 4.07 L Hgb 9.9 L Hct 34.0 L MCV 83.4 MCH 24.2 L MCHC 29.1 L RDW 18.9 H Plt Count 176 Neut % (Auto) Not Reportable Lymph % (Auto) Not Reportable [place] % (Auto) Not Reportable Eos % (Auto) Not Reportable Baso % (Auto) Not Reportable Lymph # (Auto) Not Reportable [place] # (Auto) Not Reportable Baso # (Auto) Not Reportable Total Counted 100 Seg Neutrophils % 48.0 Band Neutrophils % 2.0 L Lymphocytes % (Manual) 50.0 H Neutrophils # (Manual) 3500 RBC Morphology Not Reportable Hypochromasia 3+ H Target Cells 1+ H PT INR D-Dimer Sodium 136 L Potassium 5.1 Chloride 103 Carbon Dioxide 24 BUN 11 Creatinine 0.65 L Estimated GFR > 60.0 BUN/Creatinine Ratio 16.9 Glucose 98 Calcium 9.0 Magnesium 1.8 Iron TIBC % Saturation Transferrin Ferritin Total Bilirubin 1.1 AST 106 H ALT 18 Alkaline Phosphatase 76 Total Creatine Kinase 81 CK-MB (CK-2) TNP CK-MB (CK-2) Rel Index TNP Troponin I 0.021 NT-Pro-B Natriuret Pep Total Protein 7.8 Albumin 4.6 Globulin 3.2 Albumin/Globulin Ratio 1.4 Lipase 39 TSH Nasal Screen MRSA (PCR) SARS-CoV-2 (PCR) Negative 12/11/21 12/11/21 12/11/21 14:40 14:40 14:40 WBC RBC Hgb Hct MCV MCH MCHC RDW Plt Count Neut % (Auto) Lymph % (Auto) [place] % (Auto) Eos % (Auto) Baso % (Auto) Lymph # (Auto) [place] # (Auto) Baso # (Auto) Total Counted Seg Neutrophils % Band Neutrophils % Lymphocytes % (Manual) Neutrophils # (Manual) RBC Morphology Hypochromasia Target Cells PT INR D-Dimer 535 H Sodium Potassium Chloride Carbon Dioxide BUN Creatinine Estimated GFR BUN/Creatinine Ratio Glucose Calcium Magnesium Iron TIBC % Saturation Transferrin Ferritin Total Bilirubin AST ALT Alkaline Phosphatase Total Creatine Kinase CK-MB (CK-2) CK-MB (CK-2) Rel Index Troponin I NT-Pro-B Natriuret Pep 2780 H Total Protein Albumin Globulin Albumin/Globulin Ratio Lipase TSH 2.01 Nasal Screen MRSA (PCR) SARS-CoV-2 (PCR) 12/11/21 12/11/21 12/11/21 14:40 14:40 14:40 WBC RBC Hgb Hct MCV MCH MCHC RDW Plt Count Neut % (Auto) Lymph % (Auto) [place] % (Auto) Eos % (Auto) Baso % (Auto) Lymph # (Auto) [place] # (Auto) Baso # (Auto) Total Counted Seg Neutrophils % Band Neutrophils % Lymphocytes % (Manual) Neutrophils # (Manual) RBC Morphology Hypochromasia Target Cells PT 14.6 H INR 1.3 D-Dimer Sodium Potassium Chloride Carbon Dioxide BUN Creatinine Estimated GFR BUN/Creatinine Ratio Glucose Calcium Magnesium 1.8 Iron 142 TIBC 233 L % Saturation 61 H Transferrin 205 L Ferritin Total Bilirubin AST ALT Alkaline Phosphatase Total Creatine Kinase CK-MB (CK-2) CK-MB (CK-2) Rel Index Troponin I NT-Pro-B Natriuret Pep Total Protein Albumin Globulin Albumin/Globulin Ratio Lipase TSH Nasal Screen MRSA (PCR) SARS-CoV-2 (PCR) 12/11/21 12/11/21 14:40 19:00 WBC RBC Hgb Hct MCV MCH MCHC RDW Plt Count Neut % (Auto) Lymph % (Auto) [place] % (Auto) Eos % (Auto) Baso % (Auto) Lymph # (Auto) [place] # (Auto) Baso # (Auto) Total Counted Seg Neutrophils % Band Neutrophils % Lymphocytes % (Manual) Neutrophils # (Manual) RBC Morphology Hypochromasia Target Cells PT INR D-Dimer Sodium Potassium Chloride Carbon Dioxide BUN Creatinine Estimated GFR BUN/Creatinine Ratio Glucose Calcium Magnesium Iron TIBC % Saturation Transferrin Ferritin 159 Total Bilirubin AST ALT Alkaline Phosphatase Total Creatine Kinase CK-MB (CK-2) CK-MB (CK-2) Rel Index Troponin I NT-Pro-B Natriuret Pep Total Protein Albumin Globulin Albumin/Globulin Ratio Lipase TSH Nasal Screen MRSA (PCR) Negative for mrsa SARS-CoV-2 (PCR) [facility] Social History household members: none Smoking Status: Current every day smoker alcohol intake: current Discharge Assessment & Plan Assessment and Plan Assessment: 1. Atrial flutter with a rapid ventricular response rate 2. COPD 3. Nicotine dependence 4. Anemia 5. Hypertension Plan of Treatment: Discharge home Follow-up with PCP for Cardiology referral Patient may benefit from our patient EP cardioversion Discharge Plan Discharge Plan Patient Disposition: Home Discharge orders & Medications Prescriptions: New metoprolol tartrate 25 mg Tablet 25 mg PO BID Qty: 60 0RF Eliquis 5 mg tablet 5 mg PO BID 30 Days Qty: 60 0RF Continued acetaminophen 500 mg Capsule 1,000 mg PO PRN PRN (Reason: Pain (Scale Score 1-3)) 0RF Follow up/Referrals: Vincenzo Khan PA-C [Primary Care Provider] - Discharge Health Status Multidrug resistant organism: No MDRO Diet/Activity/Treatments Diet: Low-sodium Discharge Data Primary Care Provider: Vincenzo Khan
== END 2021-12-12 15:05 | disposition home or self-care (01) ==
LOC: ED 17:33 → ICU 17:55 → AC 12-12 12:49
PROVIDERS: Internal Medicine Pulmonary Disease; Admitting Provider Family Medicine; Emergency Provider Emergency Medicine; PCP Student in an Organized Health Care Education/Training Program; Referring Provider Emergency Medicine; Visit Provider Internal Medicine
DX: I48.92 Unspecified atrial flutter (principal); F17.210 Nicotine dependence, cigarettes, uncomplicated; I10 Essential (primary) hypertension; D64.9 Anemia, unspecified; J44.9 Chronic obstructive pulmonary disease, unspecified; Z20.822 Contact with and (suspected) exposure to COVID-19
CPT/HCPCS: 36415; 71045; 80053; 82550; 82728; 83540; 83550; 83690; 83735; 83880; 84443; 84484; 85007; 85025; 85379; 85610; 87635; 87797; 93005; 93306; 96365; 96366; 96372; 96375; 96376; 99284; 99406; C9803; G0378; J1650

== ENCOUNTER → 2022-01-09 10:55 | Outpatient (CLI) | payer OTHER, SELFPAY ==
[2021-12-11 18:29] VITALS: BMI 22.4
[2022-01-09 11:59] LABS: COVID19 -Nasal RAPID Negative (Negative)
== END ==
PROVIDERS: PCP Student in an Organized Health Care Education/Training Program; Referring Provider Internal Medicine; Visit Provider Internal Medicine
DX: Z20.822 Contact with and (suspected) exposure to COVID-19 (principal)
CPT/HCPCS: 87635; C9803

== ENCOUNTER → 2022-01-09 10:58 | Outpatient (CLI) | payer OTHER, SELFPAY ==
[2021-12-11 18:29] VITALS: BMI 22.4
--- NOTE | 2022-01-15 10:09 | PM.PFT.1 ---
Pulmonary Function Test Referral & Results Date Patient Seen: 01/09/22 Requesting provider: Sean Luciano Results: The spirometry demonstrates an FVC of 3.22 L which is 66% of predicted. The FEV1 was measured at 1.39 L which is 39% of predicted. The FEV1/FVC ratio was 43 which is 59% of predicted. Following the administration of bronchodilator there was a 21% improvement in FEF 25-75%, and a 12% improvement in FEV1 Interpretation: This study demonstrates severe obstructive lung disease based on reduction FEV1. There is evidence of some limited benefit following bronchodilator based on improvement in both FEV1 and FEF 25-75% as above
== END ==
PROVIDERS: PCP Student in an Organized Health Care Education/Training Program; Referring Provider Internal Medicine; Visit Provider Internal Medicine
DX: R06.09 Other forms of dyspnea (principal); F17.200 Nicotine dependence, unspecified, uncomplicated; Z20.822 Contact with and (suspected) exposure to COVID-19
CPT/HCPCS: 87635; 94060; C9803

== ENCOUNTER → 2022-04-02 09:00 | Outpatient (CLI) | payer OTHER, SELFPAY ==
[2021-12-11 18:29] VITALS: BMI 22.4
--- NOTE | 2022-04-02 09:04 | DI.RAD.S_ITS ---
PROCEDURE: XR CHEST 2V INDICATIONS: RECENT PNA TECHNIQUE: 2 views of the chest were acquired. COMPARISON: [facility], CR, XR CHEST 1V, 12/11/2021, 14:50. FINDINGS: Surgical changes and devices: None. Lungs and pleura: Chronic emphysematous changes are seen. Ill-defined airspace opacities are noted in right infrahilar region concerning for right lower lobe infiltrate/atelectasis. Mild pulmonary edema is also noted. No pleural effusion or pneumothorax. Mediastinum: Mediastinal contours are normal. Heart size is normal. Bones and chest wall: No suspicious bony abnormalities. Soft tissues appear unremarkable. IMPRESSION: COPD and suggestion of right lower lobe infiltrate/atelectasis. No pleural effusion or pneumothorax. Pulmonary edema. Dictated by: Yonathan Fry M.D. on 04/02/2022 at 11:50 Approved by: Yonathan Fry M.D. on 04/02/2022 at 11:50
== END ==
PROVIDERS: PCP Internal Medicine; Referring Provider Physician Assistant; Visit Provider Physician Assistant
DX: R06.09 Other forms of dyspnea (principal); J18.9 Pneumonia, unspecified organism; J44.9 Chronic obstructive pulmonary disease, unspecified; J81.1 Chronic pulmonary edema
CPT/HCPCS: 71046

== ENCOUNTER 2022-06-30 09:55 | Emergency (ER) | payer OTHER, SELFPAY ==
[2021-12-11 18:29] VITALS: BMI 22.4
[2022-06-30 10:16] VITALS: BP 142/65; PULSE 67; RESP 16; TEMP 36.2; O2SAT 99; BMI 21.7
--- NOTE | 2022-06-30 10:50 | ED.GENADULT ---
HPI - General Adult General Chief complaint: Dental/Oral Stated complaint: Left side facial swelling, left lip Time Seen by Provider: 06/30/22 10:34 Source: patient Mode of arrival: Ambulatory Limitations: no limitations History of Present Illness HPI narrative: 71-year-old male with history of what he describes as a pancytopenia. Has been seeing Hematology for this. Has no diagnosis of lymphoma or leukemia. Is here for evaluation of swelling and redness to his left jaw area. He has been putting peroxide and alcohol over the area. It did drain a little bit yesterday. No fevers. He does have problems breathing with this is baseline for him. No problems swallowing. No ear pain. Has never had anything like this in the past. He was concerned that it was an infection and he did not want it to spread given his issues with his blood counts. Related Data Home Medications Medication Instructions Recorded Confirmed acetaminophen 500 mg capsule 1,000 mg PO PRN PRN Pain (Scale 12/11/21 06/24/22 Score 1-3) atorvastatin 40 mg tablet 40 mg PO BEDTIME 05/20/22 06/24/22 dabigatran etexilate 150 mg 150 mg PO DAILY 05/20/22 06/24/22 capsule (Pradaxa) furosemide 20 mg tablet 20 mg PO BID 05/20/22 06/24/22 lorazepam 1 mg tablet 1 mg PO DAILY PRN Anxiety 05/20/22 06/24/22 magnesium oxide 400 mg PO BID 05/20/22 06/24/22 metoprolol succinate 25 mg 12.5 mg PO DAILY 05/20/22 06/24/22 tablet,extended release 24 hr potassium chloride 10 mEq 10 meq PO BID 05/20/22 06/24/22 tablet,extended release tiotropium bromide 18 mcg capsule 1 cap inhalation DAILY 05/20/22 06/24/22 with inhalation device Previous Rx's Medication Instructions Recorded doxycycline hyclate 100 mg tablet 100 mg PO BID 7 days #14 tabs 06/30/22 Allergies Allergy/AdvReac Type Severity Reaction Status Date / Time Sulfa (Sulfonamide Allergy Verified 12/11/21 14:30 Antibiotics) Review of Systems Review of Systems ROS Unobtainable: All systems reviewed & are unremarkable except as noted in HPI and below Patient History Medical History Anemia Atrial fibrillation/flutter Social History household members: none Smoking Status: Current every day smoker alcohol intake: current Smoking Status: Current every day smoker alcohol intake frequency: a few times a month Substance Use Type: does not use Exam Initial Vital Signs Initial Vital Signs: Vital Signs Temperature 97.2 F L 06/30/22 10:16 Pulse Rate 67 06/30/22 10:16 Respiratory Rate 16 06/30/22 10:16 Blood Pressure 142/65 H 06/30/22 10:16 Pulse Oximetry 99 06/30/22 10:16 Oxygen Delivery Method 06/30/22 10:16 Const General: cooperative, healthy appearing and comfortable HENMT Head: normal to inspection and normocephalic Ears: TM's normal bilaterally and EAC's normal Face and sinus: erythema (Left mandibular area), no edema and no fluctuance Mouth: oral mucosae normal Throat: posterior oropharynx normal Neck Lymphatic: No lymphadenopathy Other: Redness that extends from the mandibular ridge down anterior portion of his neck Resp Effort & Inspection: normal respiratory effort Cardio Rate: regular rate Skin Other: Redness over the left mandibular area with some fluctuance. No drainage. Erythema that extends down the anterior portion of the neck. Neuro General: patient alert, patient awake and moves all extremities Course Vital Signs Vital signs: Vital Signs - 8 hr 06/30/22 10:16 Temperature 97.2 F L Pulse Rate 67 Respiratory Rate 16 Blood Pressure 142/65 H Pulse Oximetry 99 Oxygen Delivery Method Room Air Medical Decision Making MDM Narrative Medical decision making narrative: Bedside ultrasound over the area in question does not show any underlying abscess. It does show cobblestoning consistent with cellulitis. Plan will be is to start the patient on antibiotics. This was transmitted to the pharmacy of his choice. He was given return precautions. He expressed understanding and agreement. Findings are also consistent with a cellulitis and not a parotitis nor dental infection. Discharge Plan Departure Patient Disposition: Home Clinical Impression: Cellulitis Instructions: DI for Cellulitis -- Adult Activity Restrictions/Additional Instructions: I do recommend that you take the antibiotics as directed. You can shower like normal. Take care the wound like we discussed. Return to emergency department for any new or worsening symptoms. Prescriptions: New doxycycline hyclate 100 mg tablet 100 mg PO BID 7 Days Qty: 14 0RF No Action acetaminophen 500 mg Capsule 1,000 mg PO PRN PRN (Reason: Pain (Scale Score 1-3)) atorvastatin 40 mg Tablet 40 mg PO BEDTIME potassium chloride 10 mEq Tablet Extended Release 10 meq PO BID furosemide 20 mg Tablet 20 mg PO BID metoprolol succinate 25 mg Tablet Extended Release 24 Hr 12.5 mg PO DAILY lorazepam 1 mg Tablet 1 mg PO DAILY PRN (Reason: Anxiety) tiotropium bromide 18 mcg Capsule, W/Inhalation Device 1 cap INHALATION DAILY Rx Instructions: puncture 1 cap using device; one dose = 2 inhalations dabigatran etexilate [Pradaxa] 150 mg Capsule 150 mg PO DAILY magnesium oxide 400 mg magnesium Tablet 400 mg PO BID Referrals: Sean Luciano MD [Primary Care Provider] -
== END 2022-06-30 11:01 | disposition home or self-care (01) ==
PROVIDERS: Emergency Provider Emergency Medicine; PCP Internal Medicine
DX: K12.2 Cellulitis and abscess of mouth (principal)
CPT/HCPCS: 99281

== ENCOUNTER 2022-07-23 08:48 | Emergency (ER) | payer OTHER, SELFPAY ==
[2021-12-11 18:29] VITALS: BMI 22.4
[2022-07-23 08:59] VITALS: BP 132/61; PULSE 63; O2SAT 96
[2022-07-23 09:00] VITALS: PULSE 62; O2SAT 98
[2022-07-23 09:03] VITALS: BP 132/61; PULSE 63; RESP 16; TEMP 36.8; O2SAT 96
[2022-07-23 09:30] VITALS: PULSE 60; O2SAT 97
[2022-07-23 13:12] LABS: INR 1.6 (0.9-1.3); Prothrombin Time 18.2 SECONDS (10.1-12.7)
[2022-07-23 13:15] LABS: PTT Partial Thromboplastin Tim 64 SECONDS (26-36)
[2022-07-23 13:17] LABS: Alanine Aminotransferase 12 IU/L (<50); Albumin 3.9 g/dL (3.5-5.0); Albumin Globulin Ratio 1.2 (1.0-2.8); Alkaline Phosphatase 64 U/L (38-126); Aspartate Aminotransferase 27 IU/L (17-59); BUN Creatinine Ratio 13.8 (6-22); Bilirubin Total 1.2 mg/dL (0.2-1.3); Blood Urea Nitrogen 9 mg/dL (9-20); Calcium 8.1 mg/dL (8.4-10.2); Carbon Dioxide 29 mmol/L (22-32); Chloride 102 mmol/L (98-107); Estimated Glomerular Filt Rate > 60 mL/min (>60); Globulin 3.3 g/dL (1.7-4.1); Glucose 94 mg/dL (80-110); HEMOLYSIS < 15 (0-50); Lactate (Lactic Acid) 1.2 mmol/L (0.7-2.1); Lipase 21 U/L (23-300); Sodium 138 mmol/L (137-145); Total Protein 7.2 g/dL (6.3-8.2)
[2022-07-23] MEDS: MUPIROCIN 22 GM OINT 1 APPLIC TOP (13:21)
[2022-07-23] MEDS: AMPICILLIN/SULBACTAM 3 GM 3 GM in SODIUM CHLORIDE 0.9% 100 ML IV (13:21)
[2022-07-23 13:33] LABS: Procalcitonin 0.06 ng/mL (<0.5)
--- NOTE | 2022-07-23 13:35 | ED.SKABFB ---
HPI - Skin/Abscess/Foreign Bdy <Viri Mercer, [facility] - Last Filed: 07/23/22 19:31> General Chief complaint: Skin/Abscess/Foreign Body Stated complaint: woke up w/ facial swelling mostly RT side Time Seen by Provider: 07/23/22 12:09 Source: patient Mode of arrival: Family Vehicle Limitations: no limitations History of Present Illness HPI narrative: This is a 71-year-old gentleman with history of diabetes type 2, atrial flutter on Pradaxa and history of facial cellulitis earlier this year on June 30 who presents to the emergency department for swelling, redness, and concern for cellulitis again to his nose, central around his face without any oral involvement. He denies any recent dental work, he denies any dental pain. Denies fever or chills, states that last night his right anterior naris was tender and slightly red, he states that he is prone to folliculitis so he pluck the hairs inside of his right naris last night. He states that today his face is very swollen and painful, it has been draining clear/yellow drainage from the inside of his right Nare. Patient states that he put hydrogen peroxide up his right naris after he pulled out the nasal hairs to clean it. Patient is allergic to sulfa medications. Related Data Home Medications Medication Instructions Recorded Confirmed acetaminophen 500 mg capsule 1,000 mg PO PRN PRN Pain (Scale 12/11/21 06/24/22 Score 1-3) atorvastatin 40 mg tablet 40 mg PO BEDTIME 05/20/22 06/24/22 dabigatran etexilate 150 mg 150 mg PO DAILY 05/20/22 06/24/22 capsule (Pradaxa) furosemide 20 mg tablet 20 mg PO BID 05/20/22 06/24/22 lorazepam 1 mg tablet 1 mg PO DAILY PRN Anxiety 05/20/22 06/24/22 magnesium oxide 400 mg PO BID 05/20/22 06/24/22 metoprolol succinate 25 mg 12.5 mg PO DAILY 05/20/22 06/24/22 tablet,extended release 24 hr potassium chloride 10 mEq 10 meq PO BID 05/20/22 06/24/22 tablet,extended release tiotropium bromide 18 mcg capsule 1 cap inhalation DAILY 05/20/22 06/24/22 with inhalation device Previous Rx's Medication Instructions Recorded amoxicillin 875 mg-potassium 1 tab PO BID 10 days #20 tabs 07/23/22 clavulanate 125 mg tablet clindamycin HCl 300 mg capsule 300 mg PO TID 7 days #21 caps 07/23/22 hydrocodone 5 mg-acetaminophen 325 1 tab PO DAILY PRN pain #14 tabs 07/23/22 mg tablet mupirocin 2 % topical ointment 1 applic topical BID PRN for 07/23/22 intranasal use, or for any open wound #22 grams Allergies Allergy/AdvReac Type Severity Reaction Status Date / Time Sulfa (Sulfonamide Allergy Verified 12/11/21 14:30 Antibiotics) Review of Systems <SUDHIR Sánchez - Last Filed: 07/23/22 19:31> Review of Systems Narrative: Review of systems is negative for acute abnormalities unless otherwise noted in HPI Patient History <SUDHIR Sánchez - Last Filed: 07/23/22 19:31> Medical History Anemia Atrial fibrillation/flutter Social History household members: none Smoking Status: Current every day smoker alcohol intake: current Smoking Status: Current every day smoker alcohol intake frequency: a few times a month Substance Use Type: does not use Exam <SUDHIR Sánchez - Last Filed: 07/23/22 19:31> Narrative Exam Narrative: Reviewed vitals signs and nursing notes. General: cooperative, uncomfortable, in no acute distress, well groomed, afebrile, HEENT: symmetrical facial expressions, moist mucous membranes, edema and erythema surrounding his right Levy, inside of his right nares there is excoriation along the septum, clear yellow drainage coming from right naris, Cardiovascular: regular rate and rhythm, no peripheral edema, warm extremities Respiratory: normal effort, able to speak in complete sentences, without wheezing, stridor, or abnormal breath sounds. No retractions or tachypnea. GI: abdomen soft, nontender to palpation, nondistended, without masses, rebound tenderness or exquisite tenderness with exam. MSK: moves all extremities, neurovascularly intact, no weakness, normal tone Skin: brisk capillary refill, without pallor or erythema Neuro: normal speech and cognition, A&O x3, ambulatory, clear speech Psych: mental status is grossly normal, congruent mood, normal affect, pleasant and cooperative Initial Vital Signs Initial Vital Signs: Vital Signs Pulse Rate 63 07/23/22 08:59 Blood Pressure 132/61 07/23/22 08:59 Pulse Oximetry 96 07/23/22 08:59 <Neelam Villegas DO - Last Filed: 07/23/22 20:39> Initial Vital Signs Initial Vital Signs: Vital Signs Pulse Rate 63 07/23/22 08:59 Blood Pressure 132/61 07/23/22 08:59 Pulse Oximetry 96 07/23/22 08:59 Course <SUDHIR Sánchez - Last Filed: 07/23/22 19:31> Orders Ordered: ED Orders 07/23/22 12:30 Wound Culture and Gram Stain Stat 07/23/22 12:59 Complete Blood Count AUTO DIFF Stat Comprehensive Metabolic Panel Stat Lactate (Lactic Acid) Stat Lipase Stat Partial Thromboplastin Time Stat Procalcitonin Stat Prothrombin Time INR Stat 07/23/22 13:10 Blood Culture Stat 07/23/22 13:15 UA Complete [Urinalysis and Microscopic] Stat Urine Culture Stat Discontinued Medications Hydrocodone Bitart/Acetaminophen (Hydrocodone/Acet 5/325 Tablet) 1 tab PO NOW ONE Stop: 07/23/22 13:25 Last Admin: 07/23/22 15:02 Dose: Not Given Documented By: CHELI Ampicillin Sodium/Sulbactam (Sodium 3 gm/ Sodium Chloride) 100 mls @ 200 mls/hr IV NOW ONE Stop: 07/23/22 12:36 Last Infusion: 07/23/22 15:02 Dose: 0 mls/hr Documented By: Admin: 07/23/22 13:21 Dose: 200 mls/hr Documented By: CHELI Mupirocin (Mupirocin 22 Gm Oint) 1 applic TOP NOW ONE Stop: 07/23/22 12:37 Last Admin: 07/23/22 13:21 Dose: 1 bottle Documented By: CHELI Vital Signs Vital signs: Vital Signs - 8 hr 07/23/22 14:46 07/23/22 14:46 Temperature 98.3 F Pulse Rate 69 Blood Pressure 134/60 Pulse Oximetry 97 <Neelam Villegas DO - Last Filed: 07/23/22 20:39> Orders Ordered: ED Orders 07/23/22 12:30 Wound Culture and Gram Stain Stat 07/23/22 12:59 Complete Blood Count AUTO DIFF Stat Comprehensive Metabolic Panel Stat Lactate (Lactic Acid) Stat Lipase Stat Partial Thromboplastin Time Stat Procalcitonin Stat Prothrombin Time INR Stat 07/23/22 13:10 Blood Culture Stat 07/23/22 13:15 UA Complete [Urinalysis and Microscopic] Stat Urine Culture Stat Discontinued Medications Hydrocodone Bitart/Acetaminophen (Hydrocodone/Acet 5/325 Tablet) 1 tab PO NOW ONE Stop: 07/23/22 13:25 Last Admin: 07/23/22 15:02 Dose: Not Given Documented By: CHELI Ampicillin Sodium/Sulbactam (Sodium 3 gm/ Sodium Chloride) 100 mls @ 200 mls/hr IV NOW ONE Stop: 07/23/22 12:36 Last Infusion: 07/23/22 15:02 Dose: 0 mls/hr Documented By: Admin: 07/23/22 13:21 Dose: 200 mls/hr Documented By: CHELI Mupirocin (Mupirocin 22 Gm Oint) 1 applic TOP NOW ONE Stop: 07/23/22 12:37 Last Admin: 07/23/22 13:21 Dose: 1 bottle Documented By: CHELI Vital Signs Vital signs: Vital Signs - 8 hr 07/23/22 14:46 07/23/22 14:46 Temperature 98.3 F Pulse Rate 69 Blood Pressure 134/60 Pulse Oximetry 97 MDM - Skin/Abscess/Foreign Bdy <SUDHIR Sánchez - Last Filed: 07/23/22 19:31> Lab Data Result diagrams: 07/23/22 12:59 07/23/22 12:59 Labs: Lab Results 07/23/22 07/23/22 07/23/22 Range/Units 12:59 12:59 12:59 WBC 7.6 (4.5-11.0) X10^3/uL RBC 3.78 L (4.5-5.9) X10^6/uL Hgb 9.6 L (13.5-17.5) g/dL Hct 32.5 L (41-53) % MCV 85.9 (80-100) fL MCH 25.4 L (26-34) PG MCHC 29.6 L (30-36) % RDW 22.4 H (11.6-14.8) % Plt Count 105 L (150-400) X10^3/uL Neut % (Auto) Not Reportable Lymph % (Auto) Not Reportable [place] % (Auto) Not Reportable Eos % (Auto) Not Reportable Baso % (Auto) Not Reportable Lymph # (Auto) Not Reportable [place] # (Auto) Not Reportable Baso # (Auto) Not Reportable Total Counted 50 Seg Neutrophils % 72.0 H (38-70) % Band Neutrophils % 4.0 (3-7) % Lymphocytes % (Manual) 20.0 L (25-45) % Atypical Lymphs % 2.0 H ( - 0) % Monocytes % (Manual) 2.0 (2-11) % Neutrophils # (Manual) 5776 ([id number]) /uL RBC Morphology Not Reportable Polychromasia 1+ H Hypochromasia 2+ H Poikilocytosis 1+ H Anisocytosis 2+ H Target Cells 1+ H PT 18.2 H (10.1-12.7) SECONDS INR 1.6 H (0.9-1.3) APTT 64 H (26-36) SECONDS Sodium 138 (137-145) mmol/L Potassium 4.0 (3.4-5.1) mmol/L Chloride 102 (98-107) mmol/L Carbon Dioxide 29 (22-32) mmol/L BUN 9 (9-20) mg/dL Creatinine 0.65 L (0.66-1.25) mg/dL Estimated GFR > 60 (>60) mL/min BUN/Creatinine Ratio 13.8 (6-22) Glucose 94 (80-110) mg/dL Lactate (0.7-2.1) mmol/L Calcium 8.1 L (8.4-10.2) mg/dL Total Bilirubin 1.2 (0.2-1.3) mg/dL AST 27 (17-59) IU/L ALT 12 (<50) IU/L Alkaline Phosphatase 64 (38-126) U/L Total Protein 7.2 (6.3-8.2) g/dL Albumin 3.9 (3.5-5.0) g/dL Globulin 3.3 (1.7-4.1) g/dL Albumin/Globulin Ratio 1.2 (1.0-2.8) Lipase 21 L (23-300) U/L Procalcitonin 0.06 (<0.5) ng/mL Urine Color Urine Appearance Urine pH (4.5-8.0) Ur Specific [employer] (1.000-1.035) Urine Protein (Negative) Urine Glucose (UA) (Negative) g/dL Urine Ketones (NEGATIVE) Urine Occult Blood (Negative) Urine Nitrate (Negative) Urine Bilirubin (NEGATIVE) Urine Urobilinogen (0.2) E.U./dL Ur Leukocyte Esterase (NEGATIVE) Urine RBC Urine WBC Ur Squamous Epith Cells Ur Transition Epith Cell Ur Renal Epithelial Cell Calcium Oxalate Crystal Uric Acid Crystals Triple Phos Crystals Other Crystals Amorphous Sediment Urine Bacteria Hyaline Casts Granular Casts RBC Casts WBC Casts Other Casts Urine Mucus Urine Trichomonas Urine Yeast Urine Sperm Ur Culture Indicated? Micro UA Comment 07/23/22 07/23/22 07/23/22 Range/Units 12:59 13:15 13:15 WBC (4.5-11.0) X10^3/uL RBC (4.5-5.9) X10^6/uL Hgb (13.5-17.5) g/dL Hct (41-53) % MCV (80-100) fL MCH (26-34) PG MCHC (30-36) % RDW (11.6-14.8) % Plt Count (150-400) X10^3/uL Neut % (Auto) Lymph % (Auto) [place] % (Auto) Eos % (Auto) Baso % (Auto) Lymph # (Auto) [place] # (Auto) Baso # (Auto) Total Counted Seg Neutrophils % (38-70) % Band Neutrophils % (3-7) % Lymphocytes % (Manual) (25-45) % Atypical Lymphs % ( - 0) % Monocytes % (Manual) (2-11) % Neutrophils # (Manual) ([id number]) /uL RBC Morphology Polychromasia Hypochromasia Poikilocytosis Anisocytosis Target Cells PT (10.1-12.7) SECONDS INR (0.9-1.3) APTT (26-36) SECONDS Sodium (137-145) mmol/L Potassium (3.4-5.1) mmol/L Chloride (98-107) mmol/L Carbon Dioxide (22-32) mmol/L BUN (9-20) mg/dL Creatinine (0.66-1.25) mg/dL Estimated GFR (>60) mL/min BUN/Creatinine Ratio (6-22) Glucose (80-110) mg/dL Lactate 1.2 (0.7-2.1) mmol/L Calcium (8.4-10.2) mg/dL Total Bilirubin (0.2-1.3) mg/dL AST (17-59) IU/L ALT (<50) IU/L Alkaline Phosphatase (38-126) U/L Total Protein (6.3-8.2) g/dL Albumin (3.5-5.0) g/dL Globulin (1.7-4.1) g/dL Albumin/Globulin Ratio (1.0-2.8) Lipase (23-300) U/L Procalcitonin (<0.5) ng/mL Urine Color Yellow Urine Appearance Clear Urine pH 7.5 (4.5-8.0) Ur Specific [employer] <=1.005 (1.000-1.035) Urine Protein Negative (Negative) Urine Glucose (UA) Negative (Negative) g/dL Urine Ketones Negative (NEGATIVE) Urine Occult Blood Negative (Negative) Urine Nitrate Negative (Negative) Urine Bilirubin Negative (NEGATIVE) Urine Urobilinogen 0.2 (0.2) E.U./dL Ur Leukocyte Esterase Trace H (NEGATIVE) Urine RBC Cancelled None seen Urine WBC Cancelled None seen Ur Squamous Epith Cells Cancelled None seen Ur Transition Epith Cell Cancelled Ur Renal Epithelial Cell Cancelled Calcium Oxalate Crystal Cancelled Uric Acid Crystals Cancelled Triple Phos Crystals Cancelled Other Crystals Cancelled Amorphous Sediment Cancelled Urine Bacteria Cancelled None seen Hyaline Casts Cancelled Granular Casts Cancelled RBC Casts Cancelled WBC Casts Cancelled Other Casts Cancelled Urine Mucus Cancelled Urine Trichomonas Cancelled Urine Yeast Cancelled Urine Sperm Cancelled Ur Culture Indicated? Cancelled Culture not indicate Micro UA Comment Cancelled Urine Dip Bedside Urine Glucose Negative Bedside Urine Bilirubin - Negative Bedside Urine Ketone - Negative Urine Specific [employer] 1.010 Bedside Urine Occult Blood - Negative Bedside Urine pH 7.5 Bedside Urine Protein - Negative Bedside Urine Urobilinogen 0.2 Bedside Urine Nitrite - Negative Bedside Urine Leukocytes + 70 Esterase MDM Narrative Medical decision making narrative: This is a 71-year-old male who presents to the emergency department with concern for cellulitis, he is anticoagulated on Pradaxa, is a diabetic, facial erythema and tenderness started last night on his nose. Patient reportedly flex the hairs in the right naris because he was concerned about getting fully colitis up his right naris. He later then washed it out with hydrogen peroxide and came in with swelling, erythema of his face and nares with clear yellow drainage coming from his right nares. Patient states that it rapidly progressed. He has a history of an unknown cancer causing his anemia. Today on his workup, I was concerned for facial cellulitis and MRSA, he was not on antibiotics yet and states that he has had amoxicillin in the past and failed treatment on it. Today he was treated with Unasyn IV x1, given 1 L of lactated Ringer's, his lab work overall is reassuring, he does not have a leukocytosis, he has a mild anemia but it is better than prior with a hemoglobin of 9.6 and hematocrit of 32.5. INR is 1.6, slightly elevated from his prior of 1.3, he appeared dehydrated today when he came in. His creatinine was 0.65, lactate 1.2 and lipase of 21 with a procalcitonin is 0.06. Was treated in the emergency department with Unasyn and sent home with topical mupirocin to apply to the inner right Levy, oral clindamycin and Augmentin to cover for MRSA while culture is pending, wound culture was obtained, blood cultures are pending, urine culture is also pending. Urine dip showed leukocyte esterase but microscopy did not show any bacteria, WBCs or RBCs, I presume this is likely contaminant or a missed read the urine dipstick. I encourage patient to follow-up with his primary care provider who is Dr. Luciano and discuss his symptoms with Dr. Peres who is his oncologist, also encourage patient to follow-up with Dr. Dimas if he has any worsening of this for another evaluation. We will contact him if his culture grows out anything resistant to the antibiotics he is on or if he needs different antibiotic therapy. Discussed the risk factors for C difficile and encourage patient to follow-up with his primary care provider soon. He did not have any systemic symptoms of illness. Patient is appropriate and amenable to discharge home. Vital signs are stable on repeat examination is unremarkable. Patient has been informed of results. Patient has been given strict return to ER precautions for any new or worsening symptoms. Patient understands to follow up closely with outpatient providers as instructed. Patient understands plan and agrees to discharge home. All questions and concerns answered at this time. <Neelam Villegas, DO - Last Filed: 07/23/22 20:39> Lab Data Labs: Lab Results 07/23/22 07/23/22 07/23/22 Range/Units 12:59 12:59 12:59 WBC 7.6 (4.5-11.0) X10^3/uL RBC 3.78 L (4.5-5.9) X10^6/uL Hgb 9.6 L (13.5-17.5) g/dL Hct 32.5 L (41-53) % MCV 85.9 (80-100) fL MCH 25.4 L (26-34) PG MCHC 29.6 L (30-36) % RDW 22.4 H (11.6-14.8) % Plt Count 105 L (150-400) X10^3/uL Neut % (Auto) Not Reportable Lymph % (Auto) Not Reportable [place] % (Auto) Not Reportable Eos % (Auto) Not Reportable Baso % (Auto) Not Reportable Lymph # (Auto) Not Reportable [place] # (Auto) Not Reportable Baso # (Auto) Not Reportable Total Counted 50 Seg Neutrophils % 72.0 H (38-70) % Band Neutrophils % 4.0 (3-7) % Lymphocytes % (Manual) 20.0 L (25-45) % Atypical Lymphs % 2.0 H ( - 0) % Monocytes % (Manual) 2.0 (2-11) % Neutrophils # (Manual) 5776 (8047-8137) /uL RBC Morphology Not Reportable Polychromasia 1+ H Hypochromasia 2+ H Poikilocytosis 1+ H Anisocytosis 2+ H Target Cells 1+ H PT 18.2 H (10.1-12.7) SECONDS INR 1.6 H (0.9-1.3) APTT 64 H (26-36) SECONDS Sodium 138 (137-145) mmol/L Potassium 4.0 (3.4-5.1) mmol/L Chloride 102 (98-107) mmol/L Carbon Dioxide 29 (22-32) mmol/L BUN 9 (9-20) mg/dL Creatinine 0.65 L (0.66-1.25) mg/dL Estimated GFR > 60 (>60) mL/min BUN/Creatinine Ratio 13.8 (6-22) Glucose 94 (80-110) mg/dL Lactate (0.7-2.1) mmol/L Calcium 8.1 L (8.4-10.2) mg/dL Total Bilirubin 1.2 (0.2-1.3) mg/dL AST 27 (17-59) IU/L ALT 12 (<50) IU/L Alkaline Phosphatase 64 (38-126) U/L Total Protein 7.2 (6.3-8.2) g/dL Albumin 3.9 (3.5-5.0) g/dL Globulin 3.3 (1.7-4.1) g/dL Albumin/Globulin Ratio 1.2 (1.0-2.8) Lipase 21 L (23-300) U/L Procalcitonin 0.06 (<0.5) ng/mL Urine Color Urine Appearance Urine pH (4.5-8.0) Ur Specific [employer] (1.000-1.035) Urine Protein (Negative) Urine Glucose (UA) (Negative) g/dL Urine Ketones (NEGATIVE) Urine Occult Blood (Negative) Urine Nitrate (Negative) Urine Bilirubin (NEGATIVE) Urine Urobilinogen (0.2) E.U./dL Ur Leukocyte Esterase (NEGATIVE) Urine RBC Urine WBC Ur Squamous Epith Cells Ur Transition Epith Cell Ur Renal Epithelial Cell Calcium Oxalate Crystal Uric Acid Crystals Triple Phos Crystals Other Crystals Amorphous Sediment Urine Bacteria Hyaline Casts Granular Casts RBC Casts WBC Casts Other Casts Urine Mucus Urine Trichomonas Urine Yeast Urine Sperm Ur Culture Indicated? Micro UA Comment 07/23/22 07/23/22 07/23/22 Range/Units 12:59 13:15 13:15 WBC (4.5-11.0) X10^3/uL RBC (4.5-5.9) X10^6/uL Hgb (13.5-17.5) g/dL Hct (41-53) % MCV (80-100) fL MCH (26-34) PG MCHC (30-36) % RDW (11.6-14.8) % Plt Count (150-400) X10^3/uL Neut % (Auto) Lymph % (Auto) [place] % (Auto) Eos % (Auto) Baso % (Auto) Lymph # (Auto) [place] # (Auto) Baso # (Auto) Total Counted Seg Neutrophils % (38-70) % Band Neutrophils % (3-7) % Lymphocytes % (Manual) (25-45) % Atypical Lymphs % ( - 0) % Monocytes % (Manual) (2-11) % Neutrophils # (Manual) ([id number]) /uL RBC Morphology Polychromasia Hypochromasia Poikilocytosis Anisocytosis Target Cells PT (10.1-12.7) SECONDS INR (0.9-1.3) APTT (26-36) SECONDS Sodium (137-145) mmol/L Potassium (3.4-5.1) mmol/L Chloride (98-107) mmol/L Carbon Dioxide (22-32) mmol/L BUN (9-20) mg/dL Creatinine (0.66-1.25) mg/dL Estimated GFR (>60) mL/min BUN/Creatinine Ratio (6-22) Glucose (80-110) mg/dL Lactate 1.2 (0.7-2.1) mmol/L Calcium (8.4-10.2) mg/dL Total Bilirubin (0.2-1.3) mg/dL AST (17-59) IU/L ALT (<50) IU/L Alkaline Phosphatase (38-126) U/L Total Protein (6.3-8.2) g/dL Albumin (3.5-5.0) g/dL Globulin (1.7-4.1) g/dL Albumin/Globulin Ratio (1.0-2.8) Lipase (23-300) U/L Procalcitonin (<0.5) ng/mL Urine Color Yellow Urine Appearance Clear Urine pH 7.5 (4.5-8.0) Ur Specific [employer] <=1.005 (1.000-1.035) Urine Protein Negative (Negative) Urine Glucose (UA) Negative (Negative) g/dL Urine Ketones Negative (NEGATIVE) Urine Occult Blood Negative (Negative) Urine Nitrate Negative (Negative) Urine Bilirubin Negative (NEGATIVE) Urine Urobilinogen 0.2 (0.2) E.U./dL Ur Leukocyte Esterase Trace H (NEGATIVE) Urine RBC Cancelled None seen Urine WBC Cancelled None seen Ur Squamous Epith Cells Cancelled None seen Ur Transition Epith Cell Cancelled Ur Renal Epithelial Cell Cancelled Calcium Oxalate Crystal Cancelled Uric Acid Crystals Cancelled Triple Phos Crystals Cancelled Other Crystals Cancelled Amorphous Sediment Cancelled Urine Bacteria Cancelled None seen Hyaline Casts Cancelled Granular Casts Cancelled RBC Casts Cancelled WBC Casts Cancelled Other Casts Cancelled Urine Mucus Cancelled Urine Trichomonas Cancelled Urine Yeast Cancelled Urine Sperm Cancelled Ur Culture Indicated? Cancelled Culture not indicate Micro UA Comment Cancelled Urine Dip Bedside Urine Glucose Negative Bedside Urine Bilirubin - Negative Bedside Urine Ketone - Negative Urine Specific [employer] 1.010 Bedside Urine Occult Blood - Negative Bedside Urine pH 7.5 Bedside Urine Protein - Negative Bedside Urine Urobilinogen 0.2 Bedside Urine Nitrite - Negative Bedside Urine Leukocytes + 70 Esterase Discharge Plan Departure Patient Disposition: Home Clinical Impression: Cellulitis, face, History of anticoagulant use Instructions: DI for Cellulitis -- Adult, DI for Wound Infection Activity Restrictions/Additional Instructions: *You have been diagnosed with facial cellulitis and an intranasal wound on the right. Please call and set up an appointment for follow-up with Dr. Dimas from [facility] if this is worsening, otherwise please follow-up with your primary doctor for a recheck. Please come back if you develop any worsening of your symptoms, these antibiotics could cause diarrhea, if you have persistent diarrhea this can be concerning for C difficile infection. Sometimes antibiotics can cause this and I do not suspect this will happen to you but I want you to come back if you have severe diarrhea or worsening. Your urine showed a trace of something a bacteria makes but your urine did not show any actual bacteria in it so if you develop any urinary symptoms like frequency, urgency, burning or flank pain I want you to come back for that as well. I would rather you come back and have us check you out and make sure your safe rather than not getting a chance to check on you at all. Please follow-up with your regular doctor as scheduled as well as your cancer doctor, I will send your chart to them both. *What to do: *Please continue to take your regular medications as directed. [ x] New medication prescriptions sent to your pharmacy: [[facility] ] [ ] New medication written as a paper prescription [ ] No new medications given *Please follow up with your primary care provider in 2-3 days, call for an appointment. Let them know you were seen in the Emergency Department and that we asked that you be seen for follow-up. We will electronically transmit a record of today's note if your PCP is in our system *If you do not have a primary care provider please contact [phone] to establish care with one of the [facility] primary care providers. *Return to Emergency Department if you should have any new, worsening, or concerning symptoms, such as [fever greater than 101F, chills, worsening pain, persistent vomiting or other bothersome symptoms]. Prescriptions: New mupirocin 2 % ointment 1 applic topical BID PRN (Reason: for intranasal use, or for any open wound) Qty: 22 0RF amoxicillin-pot clavulanate 875-125 mg tablet 1 tab PO BID 10 Days Qty: 20 0RF clindamycin HCl 300 mg capsule 300 mg PO TID 7 Days Qty: 21 0RF hydrocodone-acetaminophen 5-325 mg tablet 1 tab PO DAILY PRN (Reason: pain) Qty: 14 0RF No Action acetaminophen 500 mg Capsule 1,000 mg PO PRN PRN (Reason: Pain (Scale Score 1-3)) atorvastatin 40 mg Tablet 40 mg PO BEDTIME potassium chloride 10 mEq Tablet Extended Release 10 meq PO BID furosemide 20 mg Tablet 20 mg PO BID metoprolol succinate 25 mg Tablet Extended Release 24 Hr 12.5 mg PO DAILY lorazepam 1 mg Tablet 1 mg PO DAILY PRN (Reason: Anxiety) tiotropium bromide 18 mcg Capsule, W/Inhalation Device 1 cap INHALATION DAILY Rx Instructions: puncture 1 cap using device; one dose = 2 inhalations dabigatran etexilate [Pradaxa] 150 mg Capsule 150 mg PO DAILY magnesium oxide 400 mg magnesium Tablet 400 mg PO BID Referrals: Sean Luciano MD [Primary Care Provider] - Terell Dimas MD [Physician] - As soon as possible (Please call and make an appointment for soonest follow-up for your intranasal wound and facial cellulitis) Aroldo Peres MD [Physician] - Visit Report Forms: Patient Portal/API <Neelam Villegas DO - Last Filed: 07/23/22 20:39> Cosign ED Attending Coslenyature Attestation: I was immediately available in the department for consultation. Documentation has been reviewed. Case was discussed with myself.
[2022-07-23 13:43] LABS: Hematocrit 32.5 % (41-53); Hemoglobin 9.6 g/dL (13.5-17.5); Mean Corpuscular HGB Conc 29.6 % (30-36); Mean Corpuscular Hemoglobin 25.4 PG (26-34); Mean Corpuscular Volume 85.9 fL (80-100); Platelet Count 105 X10^3/uL (150-400); Red Blood Cell Count 3.78 X10^6/uL (4.5-5.9); Red Cell Distribution Width 22.4 % (11.6-14.8); White Blood Cell Count 7.6 X10^3/uL (4.5-11.0)
[2022-07-23 13:44] LABS: Add Manual Diff / Slide Review YES
[2022-07-23 13:54] LABS: Anisocytosis 2+; Hypochromasia 2+; Neutrophils Absolute Manual 5776 /uL (3000-5900); Poikilocytosis 1+; Polychromasia 1+; Target Cells 1+; Total Cells Counted 50
[2022-07-23 13:54] LABS: Appearance Urine UA CLEAR; Bilirubin Urine UA NEGATIVE (NEGATIVE); Color Urine UA YELLOW; Glucose Urine UA NEGATIVE (Negative); Ketones Urine UA NEGATIVE (NEGATIVE); Leukocyte Esterase Urine UA TRACE (NEGATIVE); Nitrite Urine UA NEGATIVE (Negative); Occult Blood Urine UA NEGATIVE (Negative); Protein Urine UA NEGATIVE (Negative); Specific Gravity Urine UA <=1.005 (1.000-1.035); Urobilinogen Urine UA 0.2 E.U./dL (0.2); pH Urine UA 7.5 (4.5-8.0)
[2022-07-23 14:00] LABS: RBC Urine None Seen (0-5/HPF); WBC Urine None Seen (0-5/HPF)
[2022-07-23 14:01] LABS: Bacteria Urine None Seen; Squamous Epithelial Cell Urine None Seen (0-5/HPF)
[2022-07-23 14:46] VITALS: BP 134/60; PULSE 69; TEMP 36.8; O2SAT 97
== END 2022-07-23 13:05 | disposition home or self-care (01) ==
PROVIDERS: Emergency Provider Nurse Practitioner Critical Care Medicine; PCP Internal Medicine
DX: L03.211 Cellulitis of face (principal); Z79.01 Long term (current) use of anticoagulants
CPT/HCPCS: 36415; 80053; 81001; 81003; 83605; 83690; 84145; 85007; 85025; 85610; 85730; 87040; 87070; 87077; 87086; 87147; 87186; 87205; 96365; 96366; 99284; J0295

== ENCOUNTER 2023-03-11 08:51 | Emergency (ER) | payer OTHER, SELFPAY ==
[2021-12-11 18:29] VITALS: BMI 22.4
[2023-03-11 08:56] VITALS: BP 125/58; PULSE 77; RESP 18; TEMP 36.9; O2SAT 99; BMI 22.6
--- NOTE | 2023-03-11 09:07 | ED_ITS ---
HPI - Abdominal Pain General Chief Complaint: Abdominal Pain Stated Complaint: cancer pt/D/sore on rectum that hurts T-2 Time Seen by Provider: 03/11/23 09:06 Source: patient Mode of arrival: Ambulatory Limitations: no limitations History of Present Illness HPI narrative: This is a 72-year-old male with history of MDS, on chemotherapy his last treatment was Thursday, atrial fibrillation on Pradaxa, COPD. He is had persistent diarrhea throughout his treatment he states he gets rectal pain and bleeding typically right after chemotherapy resolved after a day or 2 but it has persisted for the last 3 or 4 days. Patient states no real abdominal pain. He states he does have a lot of bone pain he denies fevers or chills. No passing out, no chest pain or shortness of breath. He has had some palpitations. He de nies any nausea or vomiting. He states diarrhea never really resolves but sometimes will get more junky. He states it has been very acidic can persistently burning this time. Patient states he did have some black stools but he would also eaten some devils cakes and then he ate some bed Silke and it was then light brown again. Patient states he is on anticoagulation for AFib. No new swelling in his extremities. No difficulty with urination. Patient states he is had a prior hernia repair denies other surgeries. He is allergic to sulfa. Dr. Luciano's his primary care, Dr. Peres is his oncologist and will become Dr. Partida as Dr. Peres's leaving the practice. Patient notes he has been using some topical triple antibiotic ointment to the affected area in the rectum in between bowel movements and cleaning it well. Related Data Home Medications Medication Instructions Recorded Confirmed acetaminophen 500 mg capsule 1,000 mg PO PRN PRN Pain (Scale 12/11/21 03/03/23 Score 1-3) atorvastatin 40 mg tablet 40 mg PO BEDTIME 05/20/22 03/03/23 dabigatran etexilate 150 mg 150 mg PO DAILY 05/20/22 03/03/23 capsule (Pradaxa) furosemide 20 mg tablet 20 mg PO BID 05/20/22 03/03/23 lorazepam 1 mg tablet 1 mg PO DAILY PRN Anxiety 05/20/22 03/03/23 magnesium oxide 400 mg PO DAILY 08/09/22 05/23/23 metoprolol succinate 25 mg 12.5 mg PO DAILY 05/20/22 03/03/23 tablet,extended release 24 hr potassium chloride 10 mEq 10 meq PO BID 05/20/22 03/03/23 tablet,extended release tiotropium bromide 18 mcg capsule 1 cap inhalation DAILY 05/20/22 03/03/23 with inhalation device Previous Rx's Medication Instructions Recorded ondansetron 4 mg disintegrating 4 mg PO Q8H PRN Nausea And 11/05/22 tablet Vomiting #30 tabs lorazepam 1 mg tablet (Ativan) 1 mg PO Q6HR PRN Anxiety #30 tabs 12/10/22 lorazepam 1 mg tablet (Ativan) 1 mg PO Q6HR PRN Nausea #30 tabs 12/10/22 dexamethasone 4 mg tablet 12 mg PO DIRECTED #30 tabs 12/17/22 Allergies Allergy/AdvReac Type Severity Reaction Status Date / Time Sulfa (Sulfonamide Allergy Verified 12/11/21 14:30 Antibiotics) Review of Systems Review of Systems ROS Unobtainable: All systems reviewed & are unremarkable except as noted in HPI and below Patient History Medical History Anemia Atrial fibrillation/flutter Social History household members: none Smoking Status: Former smoker alcohol intake: current Smoking Status: Former smoker alcohol intake frequency: a few times a month Substance Use Type: does not use Exam Narrative Exam Narrative: GENERAL: Alert and oriented x three, elderly appearing male in mild distress. HEENT: Head normocephalic, atraumatic, EOMI, pupils reactive, face symmetric, moist mucous membranes NECK: Supple, full range of motion CARDIOVASCULAR: Regular rate and rhythm without murmurs, rubs or gallops. RESPIRATORY: Breath sounds equal bilaterally, no wheezes rales or rhonchi. ABDOMEN: Soft, nontender. Normoactive bowel sounds all 4 quadrants. No guarding or rebound, rigidity, no mass, nondistended. On rectal exam patient has erythema and some superficial skin breakdown that is punctate, no large ulceration, no fissures. It is spread throughout the area. No large hemorrh oids or masses appreciated. : No CVA tenderness EXTREMITIES: Normal range of motion, no clubbing or edema. Neurovascularly intact NEUROLOGICAL: Cranial nerves II through XII grossly intact. Moving all extremities SKIN: Warm, dry, no petechiae, no rashes or lesions, patient does have some small areas of ecchymosis on his extremities and abdomen where he received shots. Initial Vital Signs Initial Vital Signs: Vital Signs Temperature 98.5 F 03/11/23 08:56 Pulse Rate 77 03/11/23 08:56 Respiratory Rate 18 03/11/23 08:56 Blood Pressure 125/58 L 03/11/23 08:56 Pulse Oximetry 99 03/11/23 08:56 Oxygen Delivery Method Room Air 03/11/23 08:56 Course Orders Ordered: ED Orders 03/11/23 10:28 GI Panel (Film Array) Stat Discontinued Medications Sodium Chloride (Normal Saline 0.9%) 1,000 mls @ 1,000 mls/hr IV BOLUS ONE Stop: 03/11/23 10:19 Last Infusion: 03/11/23 11:10 Dose: 0 mls/hr Documented By: Admin: 03/11/23 09:30 Dose: 1,000 mls/hr Documented By: DMITRY([email or web address]) Vital Signs Vital signs: Vital Signs - 8 hr 03/11/23 11:13 Pulse Rate 66 Respiratory Rate 18 Pulse Oximetry 98 Oxygen Delivery Method Room Air MDM - Abdominal Pain Lab Data 03/11/23 09:23 03/11/23 09:23 Labs: Lab Results 03/11/23 03/11/23 03/11/23 Range/Units 09: 09:23 10:28 WBC 4.6 (4.5-11.0) X10^3/uL RBC 3.56 L (4.5-5.9) X10^6/uL Hgb 9.7 L (13.5-17.5) g/dL Hct 33.0 L (41-53) % MCV 92.7 (80-100) fL MCH 27.1 (26-34) PG MCHC 29.3 L (30-36) % RDW 21.7 H (11.6-14.8) % Plt Count 69 L (150-400) X10^3/uL Neut % (Auto) Not Reportable Lymph % (Auto) Not Reportable [place] % (Auto) Not Reportable Eos % (Auto) Not Reportable Baso % (Auto) Not Reportable Lymph # (Auto) Not Reportable [place] # (Auto) Not Reportable Baso # (Auto) Not Reportable Total Counted 100 Seg Neutrophils % 37.0 L (38-70) % Band Neutrophils % 3.0 (3-7) % Lymphocytes % (Manual) 55.0 H (25-45) % Atypical Lymphs % 1.0 H ( - 0) % Monocytes % (Manual) 3.0 (2-11) % Eosinophils % (Manual) 1.0 L (2-4) % Neutrophils # (Manual) 1840 L (7046-4123) /uL Nucleated RBCs 13 H ( - 0) #/Diff RBC Morphology Not Reportable Polychromasia 2+ H Poikilocytosis 1+ H Anisocytosis 3+ H Ovalocytes 2+ H Sodium 136 L (137-145) mmol/L Potassium 4.4 (3.4-5.1) mmol/L Chloride 99 (98-107) mmol/L Carbon Dioxide 33 H (22-32) mmol/L BUN 9 (9-20) mg/dL Creatinine 0.75 (0.66-1.25) mg/dL Estimated GFR > 60 (>60) mL/min BUN/Creatinine Ratio 12.0 (6-22) Glucose 93 (80-110) mg/dL Calcium 8.5 (8.4-10.2) mg/dL Total Bilirubin 1.5 H (0.2-1.3) mg/dL AST 29 (17-59) IU/L ALT 26 (<50) IU/L Alkaline Phosphatase 62 (38-126) U/L Total Protein 6.5 (6.3-8.2) g/dL Albumin 3.9 (3.5-5.0) g/dL Globulin 2.6 (1.7-4.1) g/dL Albumin/Globulin Ratio 1.5 (1.0-2.8) Lipase 34 (23-300) U/L Stl C. cayetanensis PCR Not detected (Not Detect) Stool Rotavirus (PCR) Not detected (Not Detect) Stool Adenovirus (PCR) Not detected (Not Detect) Stool Astrovirus (PCR) Not detected (Not Detect) Stool Cryptosporidium PCR Not detected (Not Detect) Stl E.coli Shiga Tox PCR Not detected (Not Detect) St Sh/Enteroin Ecoli PCR Not detected (Not Detect) Stool E coli O157 PCR Not Reportable Stl Enterotoxigenic E PCR Not detected (Not Detect) Stool EPEC (PCR) Not detected (Not Detect) Stl E. histolytica PCR Not detected (Not Detect) Stool Giardia Lamblia PCR Not detected (Not Detect) Stool Sapovirus (PCR) Not detected (Not Detect) Stl P. shigelloides PCR Not detected (Not Detect) St Y.enterocolitica PCR Not detected (Not Detect) Stool Vibrio (PCR) Not detected (Not Detect) Stl Vibrio cholerae PCR Not detected (Not Detect) Stl Enteroaggr Ecoli PCR Not detected (Not Detect) Stl Norovirus GI/GII PCR Not detected (Not Detect) Campylobacter (PCR) Not detected (Not Detect) C. difficile Tox (PCR) Not detected (Not Detect) Salmonella (PCR) Not detected (Not Detect) Point of care testing: Urine Dip Bedside Urine Glucose Negative Bedside Urine Bilirubin - Negative Bedside Urine Ketone - Negative Urine Specific [place] 1.005 Bedside Urine Occult Blood - Negative Bedside Urine pH 7.0 Bedside Urine Protein - Negative Bedside Urine Urobilinogen - Negative Bedside Urine Nitrite - Negative Bedside Urine Leukocytes - Negative Esterase Imaging Data CT scan - abdomen/pelvis: Radiologist's Impression: Close Abdomen/Pelvis CT (Signed) CallDarvin - 03/11/23 Oncology Outside DI 01/26/23 Chest X-Ray (Signed) Yonathan Fry - 04/02/22 PFT Result 01/09/22 Echocardiogram Ultrasound (Signed) Kathia Masterson - 12/11/21 Telemetry Strips 12/11/21 Chest X-Ray (Signed) Rodrigue Wong - 12/11/21 EKG Rpt. 12/11/21 Abdomen Ultrasound (Signed) Cesar Oliver - 11/21/20 Head/Neck Ultrasound (Signed) Darvin Jacobs - 04/20/19 Launch?[address] [address] [address] Scan Report Signed Patient: Jurgen Quinteros MR#: [id number] : 1950 Acct:[id number] Age/Sex: 72 / M Date of Service: 03/11/23 Loc: ED Accession Number: [id number] ?? Procedure: CT abdomen pelvis w con Ordering Provider: Neelam Villegas D.O. PROCEDURE:? CT ABDOMEN PELVIS W CON ? INDICATIONS:? rectal pain, hx MDS and on chemo, black stool ? TECHNIQUE:? After the administration of IV contrast, axial sections were acquired from the lung bases to the pubic symphysis.? Coronal and sagittal reformats were performed.? For radiation dose reduction, the following was used:? automated exposure control, adjustment of mA and/or kV according to patient size. ? COMPARISON:? [facility], MR, L-SPINE WITHOUT CONTRAST, 05/24/2015, 14:06.? [facility], CT, ABDOMEN/PELVIS WITH CONTRAST, 08/11/2013, 16:35. ? FINDINGS:? Image quality:? Excellent.? ? Lung bases:? Unremarkable.? ? Heart:? No significant findings. ? ? ABDOMEN: Liver:? Small cyst in the liver, unchanged.? ? Gallbladder:? Unremarkable.? ? Biliary ducts:? Unremarkable.? ? Pancreas:? Unremarkable.? ? Spleen:? Small splenule.? No splenomegaly. ? Adrenal Glands:? Unremarkable.? ? Kidneys and Ureters:? No hydronephrosis.? Small right renal cyst which is too small to further characterize is unchanged since 2012. ? Stomach and Bowel:? Stomach is decompressed.? No small bowel obstruction.? Probable medication tablet in the small bowel in the left abdomen.? Diverticulosis.? No acute diverticulitis demonstrated.? Of note on the remote CT from 2012 there was diverticulitis.? There is minimal scarring in this region.? The appendix is not dilated. Peritoneum:? No abnormal intraperitoneal fluid.? No free air.? ? Ventral Wall: ? No hernia.? Abdominal Nodes:? No retroperitoneal or mesenteric adenopathy by size criteria.? Vessels:? Aorta and inferior vena cava are normal in size.? Circumferential calcified atherosclerotic plaque.? Portal vein is patent.? ? PELVIS: Pelvic Organs:? Prostatomegaly. Bladder:? No stone. Pelvic Nodes: No enlarged lymph nodes.? Miscellaneous: No inguinal hernias are seen. ? ? ? Bones:? No suspicious lesion.? L1 and L2 mild compression fractures, likely present on the CXR 04/02/2022.? Not seen on remote MRI from 2014.? Multilevel DDD. ? ? IMPRESSION:? 1. Diverticulosis.? No acute diverticulitis demonstrated. ? 2. No small bowel obstruction.? No free fluid. ? 3. Dense calcified atherosclerotic plaque. ? ? Dictated by: Darvin Jacobs M.D. on 03/11/2023 at 9:42 ? ? Approved by: Darvin Jacobs M.D. on 03/11/2023 at 9:53?? ECG Data Attestation: I personally reviewed and interpreted this ECG as follows: MDM Narrative Medical decision making narrative: 72-year-old male with chronic diarrhea and recurrent rectal discomfort and small ulcerations seems to be related to his chemotherapy. Not having a lot of abdominal pain, no infectious symptoms otherwise. Patient was not able to give stool sample here. His labs are overall reassuring bilirubin is slightly elevated. On imaging as a small cyst in the liver unchanged from prior and a small right renal cyst too small to characterize unchanged since 2012 with no other acute changes noted he did have diverticulitis on a prior CT but none demonstrated today and an enlarged prostate there is an L1 and L2 compression fracture likely present on chest x-ray from prior and some calcific atherosclerotic plaque. Patient's hemoglobin appears stable at 9, platelets are trending upwards at 69 today his lowest was 36 on the he received injection at that time which is likely helping. No bandemia he has a predominance of lymphocytes. INR is 1.6 expected being on Pradaxa, electrolytes are overall reassuring CO2 is 33 with normal renal function and LFTs besides bilirubin which has been intermittently elevated. Patient received fluids. Discussed persistent care for his rectal area for mucositis type symptoms. Topical protectant and cleaning well between episodes of diarrhea. Also discussed with patient to discuss with his oncology team so if this is progressing they might alter his treatment. Discharge Plan Departure Patient Disposition: Home Clinical Impression: Rectal mucous membrane ulceration Activity Restrictions/Additional Instructions: Please follow-up with your physician and or oncology team. Let them know that you are having persistent pain and skin breakdown at the rectal area they may adjust your treatment somewhat. Your gi panel is pending, please call if you have not heard results by 3 or 4:00 p.m. today. You can call [phone] Continue to clean regularly in between bowel movements, warm showers or Sitz bat hs maybe helpful 2-3 times daily. Using a topical barrier to the affected area may also be helpful, use a small amount to the affected area in between bowel movements. You can try some Imodium [id number] or persistent diarrhea. Please return for fevers, new or worsening abdominal pain new bleeding, worsening skin breakdown, black or bloody stools or other new or concerning changes. Prescriptions: No Action acetaminophen 500 mg Capsule 1,000 mg PO PRN PRN (Reason: Pain (Scale Score 1-3)) atorvastatin 40 mg Tablet 40 mg PO BEDTIME potassium chloride 10 mEq Tablet Extended Release 10 meq PO BID furosemide 20 mg Tablet 20 mg PO BID metoprolol succinate 25 mg Tablet Extended Release 24 Hr 12.5 mg PO DAILY lorazepam 1 mg Tablet 1 mg PO DAILY PRN (Reason: Anxiety) tiotropium bromide 18 mcg Capsule, W/Inhalation Device 1 cap INHALATION DAILY Rx Instructions: puncture 1 cap using device; one dose = 2 inhalations dabigatran etexilate [Pradaxa] 150 mg Capsule 150 mg PO DAILY magnesium oxide 400 mg magnesium Tablet 400 mg PO DAILY ondansetron 4 mg Tablet,Disintegrating 4 mg PO Q8H PRN (Reason: Nausea And Vomiting) Qty: 30 1RF lorazepam [Ativan] 1 mg tablet 1 mg PO Q6HR PRN (Reason: Nausea) Qty: 30 0RF Rx Instructions: take one tablet every 6 hours as needed for nausea or anxiety lorazepam [Ativan] 1 mg tablet 1 mg PO Q6HR PRN (Reason: Anxiety) Qty: 30 0RF Rx Instructions: take for anxiety or nausea dexamethasone 4 mg Tablet 12 mg PO DIRECTED Qty: 30 3RF Rx Instructions: take 3 tablets each morning x5 days before getting Vidaza injection Referrals: Sean Luciano MD [Primary Care Provider] - Stand Alone Forms: Patient Portal/API
[2023-03-11] MEDS: SODIUM CHLORIDE 0.9% 1,000 ML 1000 ML IV (09:30)
[2023-03-11 09:32] LABS: Hemoglobin 9.7 g/dL (13.5-17.5); Mean Corpuscular HGB Conc 29.3 % (30-36); Mean Corpuscular Hemoglobin 27.1 PG (26-34); Mean Corpuscular Volume 92.7 fL (80-100); Platelet Count 69 X10^3/uL (150-400); Red Blood Cell Count 3.56 X10^6/uL (4.5-5.9); Red Cell Distribution Width 21.7 % (11.6-14.8); White Blood Cell Count 4.6 X10^3/uL (4.5-11.0)
--- NOTE | 2023-03-11 09:32 | DI.CT.S_ITS ---
PROCEDURE: CT ABDOMEN PELVIS W CON INDICATIONS: rectal pain, hx MDS and on chemo, black stool TECHNIQUE: After the administration of IV contrast, axial sections were acquired from the lung bases to the pubic symphysis. Coronal and sagittal reformats were performed. For radiation dose reduction, the following was used: automated exposure control, adjustment of mA and/or kV according to patient size. COMPARISON: [facility], MR, L-SPINE WITHOUT CONTRAST, 05/24/2015, 14:06. [facility], CT, ABDOMEN/PELVIS WITH CONTRAST, 08/11/2013, 16:35. FINDINGS: Image quality: Excellent. Lung bases: Unremarkable. Heart: No significant findings. ABDOMEN: Liver: Small cyst in the liver, unchanged. Gallbladder: Unremarkable. Biliary ducts: Unremarkable. Pancreas: Unremarkable. Spleen: Small splenule. No splenomegaly. Adrenal Glands: Unremarkable. Kidneys and Ureters: No hydronephrosis. Small right renal cyst which is too small to further characterize is unchanged since 2012. Stomach and Bowel: Stomach is decompressed. No small bowel obstruction. Probable medication tablet in the small bowel in the left abdomen. Diverticulosis. No acute diverticulitis demonstrated. Of note on the remote CT from 2012 there was diverticulitis. There is minimal scarring in this region. The appendix is not dilated. Peritoneum: No abnormal intraperitoneal fluid. No free air. Ventral Wall: No hernia. Abdominal Nodes: No retroperitoneal or mesenteric adenopathy by size criteria. Vessels: Aorta and inferior vena cava are normal in size. Circumferential calcified atherosclerotic plaque. Portal vein is patent. PELVIS: Pelvic Organs: Prostatomegaly. Bladder: No stone. Pelvic Nodes: No enlarged lymph nodes. Miscellaneous: No inguinal hernias are seen. Bones: No suspicious lesion. L1 and L2 mild compression fractures, likely present on the CXR 04/02/2022. Not seen on remote MRI from 2014. Multilevel DDD. IMPRESSION: 1. Diverticulosis. No acute diverticulitis demonstrated. 2. No small bowel obstruction. No free fluid. 3. Dense calcified atherosclerotic plaque. Dictated by: Darvin Jacobs M.D. on 03/11/2023 at 9:42 Approved by: Darvin Jacobs M.D. on 03/11/2023 at 9:53
[2023-03-11 09:33] LABS: Add Manual Diff / Slide Review YES
[2023-03-11 09:44] LABS: Alanine Aminotransferase 26 IU/L (<50); Albumin 3.9 g/dL (3.5-5.0); Albumin Globulin Ratio 1.5 (1.0-2.8); Alkaline Phosphatase 62 U/L (38-126); Aspartate Aminotransferase 29 IU/L (17-59); Bilirubin Total 1.5 mg/dL (0.2-1.3); Blood Urea Nitrogen 9 mg/dL (9-20); Calcium 8.5 mg/dL (8.4-10.2); Carbon Dioxide 33 mmol/L (22-32); Chloride 99 mmol/L (98-107); Estimated Glomerular Filt Rate > 60 mL/min (>60); Globulin 2.6 g/dL (1.7-4.1); Glucose 93 mg/dL (80-110); HEMOLYSIS < 15 (0-50); Lipase 34 U/L (23-300); Potassium 4.4 mmol/L (3.4-5.1); Sodium 136 mmol/L (137-145); Total Protein 6.5 g/dL (6.3-8.2)
[2023-03-11 09:45] LABS: Anisocytosis 3+; Neutrophils Absolute Manual 1840 /uL (3000-5900); Nucleated Red Blood Cells 13 #/Diff; Polychromasia 2+; Total Cells Counted 100
[2023-03-11 09:46] LABS: Ovalocytes 2+; Poikilocytosis 1+
--- NOTE | 2023-03-11 10:41 | PC.NURSE ---
Pt given barrier cream to assist with rectum skin integrity. Pt educated on technique for application. Physician aware.
[2023-03-11 11:13] VITALS: PULSE 66; RESP 18; O2SAT 98
[2023-03-11 12:26] LABS: Adenovirus F 40/41 Not Detected (Not Detect); Astrovirus Not Detected (Not Detect); Campylobacter Not Detected (Not Detect); Clostridium difficile toxin AB Not Detected (Not Detect); Cryptosporidium Not Detected (Not Detect); Cyclospora cayetanensis Not Detected (Not Detect); Entamoeba histolytica Not Detected (Not Detect); Enteroaggregative E.coli Not Detected (Not Detect); Enteropathogenic E.coli Not Detected (Not Detect); Enterotoxigenic E.coli It/st Not Detected (Not Detect); Giardia lamblia Not Detected (Not Detect); Norovirus GI/GII Not Detected (Not Detect); Plesiomonsa shigelloides Not Detected (Not Detect); Rotavirus A Not Detected (Not Detect); Salmonella Not Detected (Not Detect); Sapovirus Not Detected (Not Detect); Shiga-like toxin-prod E.coli Not Detected (Not Detect); Shigella/Enteroinvasive E.coli Not Detected (Not Detect); Vibrio Not Detected (Not Detect); Vibrio cholerae Not Detected (Not Detect); Yersinia enterocolitica Not Detected (Not Detect)
== END 2023-03-11 11:14 | disposition home or self-care (01) ==
PROVIDERS: Emergency Provider Emergency Medicine; PCP Internal Medicine
DX: K62.6 Ulcer of anus and rectum (principal); K62.89 Other specified diseases of anus and rectum; R00.2 Palpitations; R19.7 Diarrhea, unspecified
CPT/HCPCS: 36415; 74177; 80053; 81003; 83690; 85007; 85025; 87507; 96360; 96361; 99284; Q9967